=== PATIENT | female | born 1955 | race African-American/Black ===

== ENCOUNTER → 2020-10-09 08:50 | Outpatient (BNVA) | payer OTHER, SELFPAY | PROVIDERS: Visit Provider Internal Medicine Gastroenterology | DX: Z13.89 Encounter for screening for other disorder (principal) | CPT/HCPCS: 99212 ==

== ENCOUNTER → 2020-10-28 13:18 | Outpatient (BNVA) | payer OTHER, SELFPAY | PROVIDERS: PCP Student in an Organized Health Care Education/Training Program; Visit Provider Internal Medicine Gastroenterology | DX: Z23 Encounter for immunization (principal) | CPT/HCPCS: 90471; 90632 ==

== ENCOUNTER 2020-11-05 14:22 | Outpatient (REF) | payer OTHER, SELFPAY ==
[2020-11-05 14:58] LABS: MANUAL DIFF FLAG NO
[2020-11-05 15:01] LABS: Basophils Absolute Auto 0.1 X10*3/uL (0.0-0.2); Basophils Percent Auto 0.9 % (0-2); Eosinophils Absolute Auto 0.1 X10*3/uL (0.0-0.4); Eosinophils Percent Auto 1.8 % (0-4); Hematocrit 43.8 % (37-47); Hemoglobin 14.9 g/dl (12.0-16.0); Imm Gran Abs Auto 0.01 X10*3/uL (0.00-0.03); Imm Gran Pct Auto 0.2 % (0.0-0.4); Lymphocytes Absolute Auto 2.6 X10*3/uL (1.2-4.9); Lymphocytes Percent Auto 48.1 % (20-40); Mean Corpuscular Hemoglobin 30.5 pg (27.0-33.0); Mean Corpuscular Volume 89.8 fL (80-98); Monocytes Absolute Auto 0.4 X10*3/uL (0.1-1.2); Neutrophils Absolute Auto 2.3 X10*3/uL (2.0-8.3); Platelet Count 118 X10*3/uL (160-400); Red Blood Count 4.88 X10*6/uL (4.20-5.50); Red Cell Distribution Width 13.2 % (11.0-16.0); White Blood Count 5.5 X10*3/uL (4.8-10.8)
[2020-11-05 15:05] LABS: INTERNATIONAL NORM RATIO 1.2 (0.9-1.1); Prothrombin Time 13.7 SEC (10.8-13.0)
[2020-11-05 15:39] LABS: Alanine Aminotransferase 19 U/L (0-31); Albumin Level 4.2 g/dL (3.5-5.0); Alkaline Phosphatase 107 U/L (39-117); Anion Gap 13 (12-20); Aspartate Amino Transferase 19 U/L (5-31); Bilirubin Total 1.1 mg/dL (0.0-1.0); Blood Urea Nitrogen 8 mg/dL (9-16); Calcium 8.7 mg/dL (8.4-10.2); Carbon Dioxide 27 mmol/L (22-29); Chloride 99 mmol/L (96-108); Estimated Glomerular Filt Rate > 60; Glucose Random 312 mg/dL (60-115); Potassium 3.4 mmol/l (3.3-5.1); Sodium 136 mmol/L (135-145); Total Protein 8.1 g/dL (6.5-8.0)
[2020-11-06 11:48] LABS: Alpha Fetoprotein 6.2 ng/mL
== END 2020-11-05 14:23 | disposition home or self-care (01) ==
LOC: HO.LAB 14:22
PROVIDERS: PCP Student in an Organized Health Care Education/Training Program; Visit Provider Internal Medicine Gastroenterology
DX: K74.60 Unspecified cirrhosis of liver (principal)
CPT/HCPCS: 36415; 80053; 82105; 85025; 85610

== ENCOUNTER → 2021-08-10 10:16 | Outpatient (BNVA) | payer OTHER, SELFPAY | PROVIDERS: PCP Student in an Organized Health Care Education/Training Program; Visit Provider Internal Medicine Gastroenterology | DX: R79.89 Other specified abnormal findings of blood chemistry (principal); F10.11 Alcohol abuse, in remission; K76.6 Portal hypertension; K74.60 Unspecified cirrhosis of liver; D69.6 Thrombocytopenia, unspecified | CPT/HCPCS: 99212 ==

== ENCOUNTER 2021-09-21 07:56 | Outpatient (REF) | payer OTHER, SELFPAY ==
--- NOTE | ~2021-09-21 | US_ITS ---
EXAMINATION: US ABDOMEN COMPLETE CLINICAL INFORMATION: Unspecified cirrhosis of liver. COMPARISON: MRI abdomen 08/02/2019. Ultrasound abdomen 06/01/2019. TECHNIQUE: Real-time imaging of the abdominal viscera. FINDINGS: PANCREAS: Normal. ABDOMINAL AORTA: The proximal, mid, and distal segments are normal in caliber. INFERIOR VENA CAVA: Visualized portions are normal. LIVER: The liver appears cirrhotic. Liver echotexture is increased and heterogeneous. There is question of a a 2.1 x 2.2 x 1.8 cm hyperechoic lesion in the central right lobe of the liver. There are innumerable hypoechoic areas in the liver, better appreciated in the left lobe, that measure less than 1 cm. There is no biliary duct dilatation. GALLBLADDER: The gallbladder is normal in size. There is a gallstone in the gallbladder. The gallbladder wall is normal. COMMON BILE DUCT: Normal in caliber measuring 0.45 cm in diameter. RIGHT KIDNEY: Normal. No hydronephrosis. No renal calculi or focal parenchymal lesions. The kidney measures 11.5 cm in maximum dimension. LEFT KIDNEY: Normal. No hydronephrosis. No renal calculi or focal parenchymal lesions. The kidney measures 10.6 cm in maximum dimension. SPLEEN: Normal. The spleen measures 8.8 cm in maximum dimension. FREE FLUID: None. US/US abdomen complete IMPRESSION: Cirrhotic-appearing liver. Heterogeneous liver echotexture with innumerable small subcentimeter hypoechoic areas. New 2 cm hyperechoic area in the central right lobe of the liver questionable for focal lesion.. Further characterization with liver MRI recommended. Gallstone.
[2021-09-21 11:17] LABS: INTERNATIONAL NORM RATIO 1.1 (0.9-1.1)
[2021-09-21 11:38] LABS: MANUAL DIFF FLAG NO
[2021-09-21 11:54] LABS: Basophils Percent Auto 0.9 % (0-2); Eosinophils Absolute Auto 0.2 X10*3/uL (0.0-0.4); Eosinophils Percent Auto 4.6 % (0-4); Hematocrit 42.1 % (37.0-47.0); Imm Gran Abs Auto 0.01 X10*3/uL (0.00-0.03); Imm Gran Pct Auto 0.2 % (0.0-0.4); Lymphocytes Absolute Auto 2.1 X10*3/uL (1.2-4.9); Lymphocytes Percent Auto 45.2 % (20-40); Mean Corpuscular HGB Conc 33.3 g/dl (31.0-35.0); Mean Corpuscular Hemoglobin 29.5 pg (27.0-33.0); Mean Corpuscular Volume 88.6 fL (80.0-98.0); Mean Platelet Volume 12.6 fL (9.4-12.3); Monocytes Absolute Auto 0.4 X10*3/uL (0.1-1.2); Monocytes Percent Auto 8.5 % (2-11); Neutrophils Absolute Auto 1.9 x10*3/uL (2.0-8.3); Neutrophils Percent Auto 40.6 % (45-73); Platelet Count 107 X10*3/uL (160-400); Red Blood Count 4.75 X10*6/uL (4.20-5.50); Red Cell Distribution Width 13.6 % (11.0-16.0); White Blood Count 4.6 X10*3/uL (4.8-10.8)
[2021-09-21 12:09] LABS: Alanine Aminotransferase 17 U/L (0-31); Alkaline Phosphatase 99 U/L (39-117); Anion Gap 15 (12-20); Aspartate Amino Transferase 21 U/L (5-31); Bilirubin Total 1.1 mg/dL (0.0-1.0); Blood Urea Nitrogen 7 mg/dL (9-16); Calcium 8.9 mg/dL (8.4-10.2); Carbon Dioxide 23 mmol/L (22-29); Chloride 104 mmol/L (96-108); Estimated Glomerular Filt Rate > 60; Glucose Random 215 mg/dL (60-115); Potassium 3.5 mmol/L (3.3-5.1); Sodium 138 mmol/L (135-145); Total Protein 8.1 g/dL (6.5-8.0)
== END 2021-09-21 07:57 | disposition home or self-care (01) ==
LOC: HO.HMGCX 07:56
PROVIDERS: PCP Student in an Organized Health Care Education/Training Program; Visit Provider Internal Medicine Gastroenterology
DX: K74.60 Unspecified cirrhosis of liver (principal)
CPT/HCPCS: 36415; 76700; 80053; 85025; 85610

== ENCOUNTER 2021-09-25 09:29 | Outpatient (REF) | payer OTHER, SELFPAY ==
--- NOTE | ~2021-09-25 | MR_ITS ---
EXAMINATION: MR ABDOMEN WITHOUT AND WITH CONTRAST CLINICAL INFORMATION: Cirrhosis. Question liver lesion. COMPARISON: Previous abdominal MRI July 2019 and abdominal ultrasound May 2019 and August 2021 TECHNIQUE: MR abdomen was performed without and with use of 6 mL intravenous Gadavist gadolinium contrast. Postcontrast images are performed in multiphase dynamic sequences. Imaging was performed in 3 planes. FINDINGS: LUNG BASES: The visualized lung bases are unremarkable. LIVER, GALLBLADDER, AND BILIARY TREE: The liver appears cirrhotic. There is heterogeneous enhancement of the liver suggestive of severe fibrosis. There is a small cyst seen in the peripheral lateral segment of the left lobe of the liver, for example axial T2 image 9 series 5. This is probably stable. There are no areas of early arterial phase enhancement seen. There is no biliary duct dilatation. There are gallstones in the gallbladder. PANCREAS: Unremarkable. SPLEEN: Normal. ADRENAL GLANDS: Normal. KIDNEYS AND URETERS: The kidneys are normal in size, shape, and enhance symmetrically. No hydronephrosis. No perinephric stranding. GASTROINTESTINAL TRACT: No bowel obstruction. No ascites or fluid collection. ABDOMINAL WALL: No significant hernia is appreciated. LYMPH NODES: No lymphadenopathy. VASCULAR: Unremarkable. OSSEOUS STRUCTURES: Marrow signal normal. There are degenerative changes of the spine. MR/MR abdomen wo/w con IMPRESSION: Cirrhosis and severe fibrosis. Probable stable small cyst in the lateral segment of the left lobe of the liver. No suspicious liver lesion seen. Gallstones.
== END 2021-09-25 09:30 | disposition home or self-care (01) ==
LOC: HO.MRI 09:29
PROVIDERS: Visit Provider Internal Medicine Gastroenterology
DX: R93.5 Abnormal findings on diagnostic imaging of other abdominal regions, including retroperitoneum (principal); K74.60 Unspecified cirrhosis of liver
CPT/HCPCS: 74183; A9585

== ENCOUNTER → 2022-02-11 10:10 | Outpatient (BNVA) | payer OTHER, SELFPAY | PROVIDERS: PCP Student in an Organized Health Care Education/Training Program; Visit Provider Internal Medicine Gastroenterology | DX: K74.60 Unspecified cirrhosis of liver (principal); K76.6 Portal hypertension; R79.89 Other specified abnormal findings of blood chemistry; E55.9 Vitamin D deficiency, unspecified; F10.11 Alcohol abuse, in remission; D69.6 Thrombocytopenia, unspecified | CPT/HCPCS: 99212 ==

== ENCOUNTER 2022-03-16 09:39 | Outpatient (REF) | payer OTHER, SELFPAY ==
--- NOTE | ~2022-03-16 | MR_ITS ---
EXAMINATION: MR ABDOMEN WITHOUT AND WITH CONTRAST CLINICAL INFORMATION: Cirrhosis COMPARISON: MR abdomen 09/25/2020 TECHNIQUE: MR abdomen was performed without and with use of 6 mL intravenous Gadavist gadolinium contrast. Postcontrast images are performed in multiphase dynamic sequences. Imaging was performed in 3 planes. FINDINGS: LUNG BASES: The visualized lung bases are unremarkable. LIVER, GALLBLADDER, AND BILIARY TREE: Cirrhotic morphology of the liver. Exam is severely motion degraded which limits assessment for liver lesions. No discrete liver lesion is appreciated within the limitations of significant motion. Cholelithiasis without evidence of acute cholecystitis. PANCREAS: Unremarkable. SPLEEN: Normal in size. ADRENAL GLANDS: Unremarkable. KIDNEYS AND URETERS: Unremarkable. GASTROINTESTINAL TRACT: Unremarkable. ABDOMINAL WALL: Unremarkable. LYMPH NODES: No lymphadenopathy. VASCULAR: Unremarkable. OSSEOUS STRUCTURES: Unremarkable. MR/MR abdomen wo/w con IMPRESSION: Cirrhotic morphology of the liver. Exam is severely motion degraded which limits assessment for liver lesions. No discrete liver lesion is appreciated within the limitations of significant motion, however given the degree of degradation a repeat examination or alternate imaging modalities should be considered for evaluation. Cholelithiasis without evidence of acute cholecystitis.
[2022-03-16 10:07] LABS: MANUAL DIFF FLAG NO
[2022-03-16 10:45] LABS: Basophils Percent Auto 0.6 % (0-2); Eosinophils Absolute Auto 0.2 X10*3/uL (0.0-0.4); Eosinophils Percent Auto 3.4 % (0-4); Hematocrit 41.1 % (37.0-47.0); Hemoglobin 13.5 g/dl (12.0-16.0); Imm Gran Abs Auto 0.01 X10*3/uL (0.00-0.03); Imm Gran Pct Auto 0.2 % (0.0-0.4); Lymphocytes Absolute Auto 1.9 X10*3/uL (1.2-4.9); Lymphocytes Percent Auto 41.3 % (20-40); Mean Corpuscular HGB Conc 32.8 g/dl (31.0-35.0); Mean Corpuscular Hemoglobin 29.5 pg (27.0-33.0); Mean Corpuscular Volume 89.7 fL (80.0-98.0); Mean Platelet Volume 12.2 fL (9.4-12.3); Monocytes Absolute Auto 0.4 X10*3/uL (0.1-1.2); Monocytes Percent Auto 8.2 % (2-11); Neutrophils Absolute Auto 2.2 x10*3/uL (2.0-8.3); Neutrophils Percent Auto 46.3 % (45-73); Platelet Count 103 X10*3/uL (160-400); Red Blood Count 4.58 X10*6/uL (4.20-5.50); Red Cell Distribution Width 13.8 % (11.0-16.0); White Blood Count 4.7 X10*3/uL (4.8-10.8)
[2022-03-16 10:52] LABS: INTERNATIONAL NORM RATIO 1.2 (0.9-1.1); Prothrombin Time 13.6 SEC (9.9-13.0)
[2022-03-16 11:11] LABS: Alanine Aminotransferase 22 U/L (0-31); Albumin Level 3.8 g/dL (3.5-5.0); Alkaline Phosphatase 93 U/L (39-117); Anion Gap 14 (12-20); Aspartate Amino Transferase 26 U/L (5-31); Bilirubin Total 1.3 mg/dL (0.0-1.0); Blood Urea Nitrogen 8 mg/dL (9-16); Carbon Dioxide 24 mmol/L (22-29); Chloride 102 mmol/L (96-108); Estimated Glomerular Filt Rate > 60; Glucose Random 206 mg/dL (60-115); Potassium 3.5 mmol/L (3.3-5.1); Sodium 136 mmol/L (135-145); Total Protein 7.8 g/dL (6.5-8.0)
[2022-03-16 11:36] LABS: Vitamin D 25-OH Total 21.3 ng/mL (>30)
[2022-03-19 13:12] LABS: Zinc 59 mcg/dL (60-130)
== END 2022-03-16 09:40 | disposition home or self-care (01) ==
LOC: HO.MRI 09:39
PROVIDERS: PCP Student in an Organized Health Care Education/Training Program; Visit Provider Internal Medicine Gastroenterology
DX: K74.60 Unspecified cirrhosis of liver (principal)
CPT/HCPCS: 36415; 74183; 80053; 82306; 84630; 85025; 85610; A9585

== ENCOUNTER 2022-06-18 11:28 | Day surgery (SDC) | payer MEDICARE, OTHER, SELFPAY ==
[2022-06-18 11:36] VITALS: BMI 26.7
[2022-06-18 11:56] VITALS: BP 159/76; PULSE 72; RESP 16; TEMP 36.7; O2SAT 98
[2022-06-18] MEDS: Lactated Ringers 1,000 ML 100 ML IVCONT (12:04)
--- NOTE | 2022-06-18 12:26 | HO.ANESPROP2 ---
HPI - Anesthesia Eval Consult details Narrative: 67yo female patient for EGD PMFSH Active Problems Active Problems: All Active Problems (Updated 05/31/22 @ 11:42 by Sita Peterson RN) Cirrhosis of liver without ascites (Acute) Portal hypertension (Acute) Thrombocytopenia (Acute) ETOH abuse (Acute)- still drinking 'moderately' Vitamin D deficiency (Acute) Elevated LFTs (Acute) Type 2 diabetes mellitus (Acute) Abnormal US (ultrasound) of abdomen (Acute) HTN Denies MEGHA Past Medical History Medical History Cirrhosis of liver without ascites ETOH abuse History of gastric cancer Portal hypertension Thrombocytopenia Type 2 diabetes mellitus Vitamin D deficiency Family History Family History Father No problems noted. Mother No problems noted. Family history of problems with anesthesia: No Surgical History Surgical History (Updated 06/18/22 @ 11:35 by Ana Maria Fish RN) History of appendectomy History of History of colonoscopy History of hysterectomy Hx of abdominal surgery Hx of endoscopy Hx of tubal ligation History of Problems with Anesthesia: No Social History Social History Alcohol intake: current Alcohol intake frequency: former alcohol drinker Alcohol type: beer Patient Tobacco Use Status: Never used Tobacco Use of substances other than those prescribed or required for medical reasons: No Are you DNR?: No Advance Directives: No Advance Directives Information Provided: Yes Meds Allergies Allergy/AdvReac Type Severity Reaction Status Date / Time glipizide Allergy Unknown Stomach Verified 06/18/22 11:35 pain, nausea, palpitations Active Medications: Current Medications Lactated Ringer's (Lr) 1,000 mls @ 100 mls/hr IVCONT .Q10H FINN Last Admin: 06/18/22 12:04 Dose: 100 mls/hr Home Medications Medication Instructions Recorded Confirmed Last Taken Type amlodipine 10 mg tablet 10 mg PO DAILY 10/09/20 06/18/22 06/18/22 07:30 History glyburide 5 mg tablet 5 mg PO BID 10/09/20 06/18/22 06/18/22 07:30 History metoprolol succinate 200 mg 200 mg PO DAILY 10/09/20 06/18/22 06/18/22 07:30 History tablet,extended release 24 hr Exam Exam Date and Time: June 18, 2022 1226 Height,Weight and Vital Signs: Height 5 ft Weight 62.142 kg Last Vital Signs Temp 98.0 F 06/18/22 11:56 Pulse 72 06/18/22 11:56 Resp 16 06/18/22 11:56 BP 159/76 H 06/18/22 11:56 Pulse Ox 98 06/18/22 11:56 O2 Del Method 06/18/22 11:56 Pertinent Lab Results Pertinent Lab Results: Lab Results 06/18/22 Range/Units 11:54 POC Glucose 145 H (60-115) mg/dL Airway Mallampati Class: II TM Dist: >3cm Neck ROM: Full Loose/Missing/Broken Teeth: No (Top front tooth discolored ) Heart: RRR Lungs: CTAB Assessment and Plan Assessment Anesthesia Assessment: Anesthesia Plan Discussed and Chart Reviewed Final Anesthetic Review Family History of Problems with Anesthesia: No History of Problems with Anesthesia: No NPO: Yes ASA Class: III Final Preanesthetic Review: No Changes in Pt Med Stat, Meds/Allgs Chart Reviewed, Consent Obtained/Reviewed and Anes Risks/Benef Reviewed Patient Risk: Intermediate Procedure Risk: Low Assessment/Block/Sedation in SS: Assess/Block/Sedation-SS Anesthetic Plan Anesthetic Plan: MAC: Disposition: Standard PACU
[2022-06-18 12:41] LABS: Glucose, Whole Blood 145 mg/dL (60-115)
--- NOTE | 2022-06-18 12:49 | MHC.SHP ---
Pre-Procedural Eval Section A Date of Service: 06/18/22 The patient is an INPATIENT: No The History & Physical has been completed within 30 days and I have reviewed it.: No Section B Chief Complaint: cirrhosis screen for varices Details of Present Illness: cirrhosis screen for varices Relevant Family History (Specify if Yes): No Relevant Social History: None Present Medications: see Short Stay Collaborative assessment Medical History: Significant History ( cirrhosis, history of gastric cancer) History of Previous Operations: Relevant previous surgery/procedure and date(s) (History of appendectomy History of History of colonoscopy History of hysterectomy Hx of endoscopy) Allergies: Allergies Allergy/AdvReac Type Severity Reaction Status Date / Time glipizide Allergy Unknown Stomach Verified 06/18/22 11:35 pain, nausea, palpitations Review of Systems Sugical H&P ROS: Negative: Constitution, Cardiovascular, Respiratory and Gastrointestinal Exam Surgical H&P Exam: Normal: Heart, Normal: Lungs, Normal: Extremities and Normal: Abdomen Plan Diagnosis/Plan: Unchanged I have reviewed the history and physical and performed a pertinent physical examination on my patient. No changes have occurred unless specified.
--- NOTE | 2022-06-18 12:56 | P.BOP_ITS ---
Brief Operative Note Date of Service: 06/18/22 Pre-op diagnosis: cirrhosis follow-up of esophageal varices Post-op diagnosis: other ( Small esophageal varices, mild portal gastropathy, gastritis) Procedure: FLEXIBLE TRANSORAL UPPER GASTROINTESTINAL ENDOSCOPY WITH BIOPSIES Consent: Indications for the procedure and potential complications of bleeding, perforation, reaction to medications and missed diagnosis were discussed with the patient and informed consent was obtained. Instrument: Olympus GIF H 190 mid size upper endoscope Monitoring: Vital signs and clinical assessment, continuous EKG monitoring, Pulse oximetry, Carbon Dioxide monitoring and blood pressure monitoring were done throughout the procedure. Procedure: The patient was placed in the left lateral decubitis position and pre-procedure medications were administered and a bite block was placed. The endoscope was inserted into the mouth and advanced under direct vision to the third part of duodenum. A careful inspection was made as the upper endoscope was withdrawn including a retroflexed examination of the proximal stomach; Findings and interventions are described below. Findings: Larynx: Normal Esophagus: Grade 1-2 two columns of esophageal varices from 30 to 38 cms without high risk stigmata for bleeding and too small to be banded. GE junction at 38 cms. No esophagitis or Soria's. Stomach: Moderate diffuse gastric erythema with mild portal gastropathy. Antral biopsies were obtained. Grade 2 flap valve and no significant gastric varices on retroflexed examination of the cardia. Duodenum: Normal bulb and descending duodenum Intervention: Biopsies as noted above Impression and Post Procedure Diagnosis: Endoscopy Findings: ESOPHAGUS: Grade 1-2 two columns of esophageal varices from 30 to 38 cms without high risk stigmata for bleeding and too small to be banded. GE junction at 38 cms. No esophagitis or Soria's. STOMACH: Moderate diffuse gastric erythema with mild portal gastropathy. Antral biopsies were obtained. Grade 2 flap valve and no significant gastric varices on retroflexed examination of the cardia. Plan: Await pathology results Patient has an appointment on 08/05/22 in the GI Clinic with Cary Weaver M.D.. Above findings were reviewed with the patient and [GERD] and [Gastritis] handouts were given in the discharge area Surgeon: Cary Weaver MD Anesthesia: MAC Was an Application Design Engineer used for this Procedure?: Yes Application Design Engineer: Liset Ojeda Estimated blood loss (mL): 0 Pathology: other (A. gastric antrum bxs, R/O H. pylori) Condition: stable Disposition: PACU
--- NOTE | 2022-06-18 12:56 | W.PM.OPN ---
Operative Note Operative Note Date of Service: 06/18/22 Narrative: Pre-op diagnosis: cirrhosis follow-up of esophageal varices Post-op diagnosis:?other (? Small esophageal varices, mild portal gastropathy, gastritis) Procedure: FLEXIBLE TRANSORAL UPPER GASTROINTESTINAL ENDOSCOPY WITH BIOPSIES Consent:?Indications for the procedure and potential complications of bleeding, perforation, reaction to medications and missed diagnosis were discussed with the patient and informed consent was obtained. Instrument:?Olympus GIF H 190 mid size upper endoscope Monitoring: Vital signs and clinical assessment, continuous EKG monitoring, Pulse oximetry, Carbon Dioxide monitoring and blood pressure monitoring were done throughout the procedure. Procedure:?The patient was placed in the left lateral decubitis position and pre-procedure medications were administered and a bite block was placed. The endoscope was inserted into the mouth and advanced under direct vision to the third part of duodenum. A careful inspection was made as the upper endoscope was withdrawn including a retroflexed examination of the proximal stomach; Findings and interventions are described below. Findings: Larynx:? Normal Esophagus: Grade 1-2 two columns of esophageal varices from 30 to 38 cms? without high risk stigmata for bleeding and too small to be banded. GE junction at 38 cms. No esophagitis or Soria's. Stomach: Moderate diffuse gastric erythema with mild portal gastropathy. Antral biopsies were obtained. Grade 2 flap valve? and no significant gastric varices on retroflexed examination of the cardia. Duodenum: Normal bulb and descending duodenum Intervention: Biopsies as noted above Impression and Post Procedure Diagnosis: Endoscopy Findings: ESOPHAGUS: Grade 1-2 two columns of esophageal varices from 30 to 38 cms? without high risk stigmata for bleeding and too small to be banded. GE junction at 38 cms. No esophagitis or Soria's. STOMACH: Moderate diffuse gastric erythema with mild portal gastropathy. Antral biopsies were obtained. Grade 2 flap valve? and no significant gastric varices on retroflexed examination of the cardia. Plan: Await pathology results Repeat EGD in 1 year. Patient has an appointment on 08/05/22 in the GI Clinic with Cary Weaver M.D. Above findings were reviewed with the patient and esophageal varices handout was given in the discharge area Surgeon: Cary Weaver MD Anesthesia:?MAC Was an Metal Furniture Repairer used for this Procedure?:?Yes Metal Furniture Repairer:?Liset Ojeda Estimated blood loss (mL):?0 Pathology:?other (A. gastric antrum bxs, R/O H. pylori) Condition:?stable Disposition:?PACU
[2022-06-18 13:26] VITALS: BP 91/51; PULSE 64; RESP 16; TEMP 36.6; O2SAT 97
[2022-06-18 13:41] VITALS: BP 102/59; PULSE 69; RESP 16; O2SAT 98
[2022-06-18 13:56] VITALS: BP 132/74; PULSE 70; RESP 16; TEMP 36.4; O2SAT 97
== END 2022-06-18 14:27 | disposition home or self-care (01) ==
PROVIDERS: PCP Student in an Organized Health Care Education/Training Program; Visit Provider Internal Medicine Gastroenterology
PROC: 0DJ08ZZ Inspection of Upper Intestinal Tract, Via Natural or Artificial Opening Endoscopic (ICD-10-PCS; CPT 43235; principal; 2022-06-18 12:30)
DX: K21.9 Gastro-esophageal reflux disease without esophagitis (principal); K74.60 Unspecified cirrhosis of liver; I85.00 Esophageal varices without bleeding; F10.11 Alcohol abuse, in remission; K29.50 Unspecified chronic gastritis without bleeding; K76.6 Portal hypertension; E55.9 Vitamin D deficiency, unspecified; D69.6 Thrombocytopenia, unspecified; R79.89 Other specified abnormal findings of blood chemistry; E11.9 Type 2 diabetes mellitus without complications; Z79.84 Long term (current) use of oral hypoglycemic drugs; Z79.899 Other long term (current) drug therapy; Z88.8 Allergy status to other drugs, medicaments and biological substances; Z85.028 Personal history of other malignant neoplasm of stomach
CPT/HCPCS: 43239; 82947; 88305; 88342; J2250

== ENCOUNTER → 2022-11-25 09:23 | Outpatient (BNVA) | payer OTHER, SELFPAY | PROVIDERS: PCP Student in an Organized Health Care Education/Training Program; Visit Provider Internal Medicine Gastroenterology | DX: K76.6 Portal hypertension (principal) ==

== ENCOUNTER 2022-12-16 08:59 | Outpatient (REF) | payer OTHER, SELFPAY ==
--- NOTE | ~2022-12-16 | US_ITS ---
EXAMINATION: US ABDOMEN LIMITED CLINICAL INFORMATION: Unspecified cirrhosis of liver. Liver cyst. COMPARISON: MRI abdomen 03/16/2022 and 09/25/2021. Ultrasound abdomen complete 09/21/2021 and 06/01/2019. TECHNIQUE: Real-time imaging of the right upper quadrant abdominal viscera. FINDINGS: PANCREAS: Normal. LIVER: Liver is heterogeneous with a nodular border consistent with given history of cirrhosis. No biliary ductal dilatation is seen. There is a small hypoechoic area seen in the left lobe of the liver measuring 8 x 5 x 6 mm. This was not seen on the most recent MRI; however, this was extremely limited due to motion artifact. However, on an MR performed on 09/25/2021, a small cyst was noted in the lateral segment of the left lobe of the liver. At the time of the prior ultrasound from 09/21/2021, multiple masses were felt to be present in the liver which are not well appreciated on the current study. GALLBLADDER: Gallstones are present in the gallbladder wall appears thickened. Bacon's sign is negative. COMMON BILE DUCT: Normal in caliber measuring 0.3 cm in diameter. RIGHT KIDNEY: No hydronephrosis. No renal calculi or focal parenchymal lesions. The kidney measures 11.2 cm in maximum dimension. FREE FLUID: None. US/US abdomen limited IMPRESSION: 1. Cirrhotic-appearing liver with a small 8 mm hypoechoic area in the left lobe. This was not seen on the most recent MRI but was seen on the MRI prior to that. 2. Cholelithiasis.
[2022-12-16 11:27] LABS: INTERNATIONAL NORM RATIO 1.1 (0.9-1.1); Prothrombin Time 12.9 SEC (10.0-13.1)
[2022-12-16 11:30] LABS: Hematocrit 41.9 % (37.0-47.0); Mean Corpuscular HGB Conc 33.4 g/dl (31.0-35.0); Mean Corpuscular Hemoglobin 29.7 pg (27.0-33.0); Mean Corpuscular Volume 88.8 fL (80.0-98.0); Mean Platelet Volume 12.9 fL (9.4-12.3); Platelet Count 107 X10*3/uL (160-400); Red Blood Count 4.72 X10*6/uL (4.20-5.50); Red Cell Distribution Width 13.2 % (11.0-16.0); White Blood Count 5.3 X10*3/uL (4.8-10.8)
[2022-12-16 12:07] LABS: Alanine Aminotransferase 15 U/L (0-31); Albumin Level 3.9 g/dL (3.5-5.0); Alkaline Phosphatase 94 U/L (39-117); Anion Gap 15 (12-20); Aspartate Amino Transferase 23 U/L (5-31); Bilirubin Total 1.5 mg/dL (0.0-1.0); Blood Urea Nitrogen 9 mg/dL (9-16); Calcium 8.9 mg/dL (8.4-10.2); Carbon Dioxide 24 mmol/L (22-29); Chloride 103 mmol/L (96-108); Estimated Glomerular Filt Rate > 60; Glucose Random 251 mg/dL (60-115); Potassium 3.6 mmol/L (3.3-5.1); Sodium 138 mmol/L (135-145); Total Protein 7.8 g/dL (6.5-8.0); Vitamin D 25-OH Total 37.8 ng/mL (>30)
== END 2022-12-16 09:00 | disposition home or self-care (01) ==
LOC: HO.HMGCX 08:59
PROVIDERS: PCP Student in an Organized Health Care Education/Training Program; Visit Provider Internal Medicine Gastroenterology
DX: K74.60 Unspecified cirrhosis of liver (principal); K76.89 Other specified diseases of liver
CPT/HCPCS: 36415; 76705; 80053; 82306; 85027; 85610

== ENCOUNTER 2023-05-26 08:59 | Outpatient (AMB) | payer OTHER, SELFPAY ==
[2023-05-26 09:26] VITALS: BP 142/72; PULSE 54; BMI 27.5
--- NOTE | 2023-05-26 09:26 | A.OFFVIS_ITS ---
Intake Vital Signs 05/26/23 09:26 Height 5 ft Weight 141 lb BMI 27.5 BP 142/72 H Blood Pressure Location Lt brachial Position Sitting Pulse 54 Intake Visit Reasons: 6 month FU Allergies glipizide Allergy (Unknown, Verified 11/25/22 09:34) Stomach pain, nausea, palpitations Medication List - Last Reconciled 05/26/23 by Cary Weaver MD amlodipine 10 mg PO DAILY cholecalciferol (vitamin D3) 250 mcg PO 2XW 90 days glyburide 5 mg PO BID metoprolol succinate ER 200 mg PO DAILY HPI 6 month FU HPI Details GI CLINIC VISIT FOR THIS 68-YEAR-OLD FEMALE FOR FOLLOW-UP OF CIRRHOSIS. CHRONIC ILLNESSES:?Heavy alcohol use, vitamin-D deficiency, abnormal LFTs, thrombocytopenia, history of malignant neoplasm of the stomach, pseudophakia of both eyes, type 2 diabetes mellitus without ophthalmic manifestations ?LABS IN [facility]:?08/11 NORMAL HAPTOGLOBIN and LFts. ? Hepatitis-B and C serologies were negative. ? 08/11 Liver fibrosis score 0.38, Liver Fibrosis Stage F1-F2, necroinflammatory score 0.09, albumin 3.9 ? 04/2015 WBC 4.3 H&H 13.1 AND 40.6, PLATELET COUNT 117, ? IMAGING STUDIES:?12/16/ ABD US SHOWED: 1.? Cirrhotic-appearing liver with a small 8 mm hypoechoic area in the left lobe. This was not seen on the most recent MRI but was seen on the MRI prior to that. 2.? Cholelithiasis. 02/2022 HEPATIC MRI SHOWED: Cirrhotic morphology of the liver. Exam is severely motion degraded which limits assessment for liver lesions. No discrete liver lesion is appreciated within the limitations of significant motion, however given the degree of degradation a repeat examination or alternate imaging modalities should be considered for evaluation. ?Cholelithiasis without evidence of acute cholecystitis. 09/2021 ABD MRI SHOWED: ? LIVER, GALLBLADDER, AND BILIARY TREE: The liver appears cirrhotic. There is heterogeneous enhancement of the liver suggestive of severe fibrosis. There is a small cyst seen in the peripheral lateral segment of the left lobe of the liver, for example axial T2 image 9 series 5. This is probably stable. There are no areas of early arterial phase enhancement seen. There is no biliary duct dilatation. There are gallstones in the gallbladder. 07/2019 abdominal MRI showed: ? Findings consistent with hepatic cirrhosis. No abnormal arterial phase enhancement to suggest hepatocellular carcinoma. ? ? ? Gallstones. Likely gastric, esophageal, and splenic varices suggesting portal hypertension. ? ENDOSCOPIC STUDIES:?05/2022 EGD SHOWED: ESOPHAGUS: Grade 1-2 two columns of esophageal varices from 30 to 38 cms? without high risk stigmata for bleeding and too small to be banded. GE junction at 38 cms. No esophagitis or Soria's. STOMACH: Moderate diffuse gastric erythema with mild portal gastropathy. Antral biopsies were obtained - negative for Helicobacter pylori. Being followed at [facility] by Dr Michel and had an EGD and Colonoscopy on 01/03/20. RECORDS FROM [facility] WERE REVIEWED: EGD showed 2 cords of flat non bleeding varices in the lower 3rd of the esophagus with no stigmata of bleeding and were too small to be banded. A few superficial nonbleeding 1-2 mm ulcers were found in the antrum and biopsies were obtained. Mucosa appeared diffuse and congested with petechiae and mosaic mucosal pattern compatible with portal hypertensive gastropathy. Gastric biopsies were positive for Helicobacter pylori associated chronic active gastritis. ?TODAY'S VISIT Had an asthma attack around her birthday (? related to smoke in the air) She was treated with 2 courses of prednisone. Finished prednisone a week ago. 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 Starting a program next week (06/03/23) for the drinking Taking 2-3 beers daily or every other day. Daughter visiting from [place] this week. PAST VISIT: Doing fine and doing good. ?Feeling better than she did last year. Drinking a lot less - 2-3 drinks of beer a day Visited her daughter in [place] last summer and saw her GK and great GK Not drinking as much as she was in the past. Takes 1-2 drinks after work every other day Thinking about visiting her daughter in [place] over the summer Drinks off and on - 3 beers (no hard liqour) 3-4 times a week ? Trying to take better care of herself and trying to quit drinking. ? Stomach has not been bothering her like before. ? Feet swell up once a week during the summer if she does a lot of walking. ? Has not been to [facility] in 12 months COVID test was negative last week. ? ? ? Had a CT scan recently. ? Treated with antibiotics for H Pylori. ? Scheduled to have labs this month and FU at [facility] on 04/21/20. ? Had an Abd US at [facility] in December - negative per patient. ? Working on quitting drinking and still working on it - takes 1 beer and no hard liquor daily. ? Denies symptoms of fatigue, fever or dizziness. ? Patient denies change in bowel habits, black stools or rectal bleeding ? Denies dysphagia, heartburn. ? Eating a little more and appetite and weight are stable. ? Diagnosed with DM 3 yrs ago. ? Pt was drinking 2 beers a day since October, after her spouse in Oct, 2018 with pancreatic cancer and states she quitted drinking 4-5 weeks ago. ? History of blood transfusion in 1972. ? Gastric surgery for CA in 2003 at [facility] - records have been requested. ? Mom has stage 4?breast cancer [facility] Medical History (Updated 11/25/22 @ 09:39 by Cary Weaver MD) Cirrhosis of liver without ascites ETOH abuse History of gastric cancer Portal hypertension Thrombocytopenia Type 2 diabetes mellitus Vitamin D deficiency Surgical History History of appendectomy History of History of colonoscopy History of esophagogastroduodenoscopy (EGD) History of hysterectomy Hx of abdominal surgery Hx of endoscopy Hx of tubal ligation Family History Father No problems noted. Mother No problems noted. Social History Alcohol intake: current Alcohol intake frequency: former alcohol drinker Alcohol type: beer Patient Tobacco Use Status: Never used Tobacco Review of Systems Const All systems reviewed & are unremarkable except as noted in HPI and below Physical Exam Vital Signs: Last Vital Signs Pulse 54 05/26/23 09:26 BP 142/72 H 05/26/23 09:26 BMI result Body Mass Index 27.5 Const General: healthy appearing and no acute distress Nutritional Appearance: overweight Orientation/consciousness: patient oriented x3 Limitations: no limitations HEENT Head: Yes normal to inspection Ears: hearing grossly normal bilaterally Eyes Sclerae: sclerae normal Pupils: Equal, round and reactive pupils present Neck Neck: Yes normal visual inspection Chest Chest palpation & inspection: normal inspection of the chest Resp Effort & Inspection: normal respiratory effort Auscultation: clear to auscultation bilaterally Cardio Palpation: normal PMI Rate: regular rate Rhythm: regular rhythm Heart sounds: S1 normal heart sound present, S2 normal heart sound present and n o murmurs GI Palpation (GI): Soft to palpation, nontender and No hepatosplenomegaly present Auscultation: normal bowel sounds Rectal Exam - Female: deferred Skin General skin exam: no rashes or lesions noted Neuro General: patient oriented x3, gait normal and moves all extremities Cranial nerves: Yes Equal, round and reactive pupils present Psych Appearance: grossly normal Mental Status: mental status grossly normal Assessment & Plan Assessment & Plan (1) Cirrhosis of liver without ascites: Code(s): K74.60 - Unspecified cirrhosis of liver (2) Portal hypertension: Code(s): K76.6 - Portal hypertension (3) Thrombocytopenia: Code(s): D69.6 - Thrombocytopenia, unspecified (4) History of ETOH abuse: Code(s): F10.11 - Alcohol abuse, in remission (5) Abnormal US (ultrasound) of abdomen: Code(s): R93.5 - Abnormal findings on diagnostic imaging of other abdominal regions, including retroperitoneum (6) Liver cyst: Code(s): K76.89 - Other specified diseases of liver Plan 68 YF with heavy alcohol use in the past, vitamin-D deficiency, abnormal LFTs, thrombocytopenia, history of malignant neoplasm of the stomach, pseudophakia of both eyes, type 2 diabetes mellitus seen for evaluation of elevated LFTs, thrombocytopenia and ultrasound showing cirrhotic appearing liver with heterogeneous echotexture. Cirrhosis can be related to EtOH use. Hepatitis-B and C serologies were negative. Lab evaluation for hemochromatosis and alpha-1 antitrypsin deficiency were normal. Course, complications and prognosis of cirrhosis was reviewed with the patient during a previous visit and she was advised to abstain completely from alcohol use . Pt continues to drink and states she is trying to quit. Patient handout on cirrhosis from up-to-date was provided to the patient and all questions were answered. Patient had an upper endoscopy and colonoscopy at [facility] with Dr. Michel in the 2nd week of December, -findings as noted above. Her hepatitis serologies were negative and 2nd dose of Hepatitis B vaccine was administered by GI RN (2nd Dose). Patient is due for her 3rd dose and I will ask GI RN to schedule. ? REDUCING THE RISK OF LIVER PROGRESSION:? patient was advised to completely avoid use of alcohol. HCC SURVEILLANCE: ? the patient is at risk of developing hepatocellular carcinoma given the presence of cirrhosis she needs 6 monthly imaging survei llance with either abdominal ultrasound (US) or multiphase cross-sectional imaging (CT or MRI).? She will be scheduled for an abd US (motion artifact on last MRI scan) SURVEILLANCE FOR GASTROESOPHAGEAL VARICES: Pt will be scheduled for repeat EGD for follow up of esophageal varices on her FU visit (due end of 2022) QUESTION OF LIVER TRANSPLANTATION: ? As she has never had any hepatic decompensation, and continues to have good hepatic synthetic function with meld score of 9, liver transplantation does not need to be considered at this time. Patient was advised to schedule an EGD (FU of esophageal varices and an Abd US and FU in 6 months Orders: Orders US abdomen limited Today K74.60 - Unspecified cirrhosis of liver, K76.89 - Other specified diseases of liver Coding Level of Care Code Est Pt Level 4 (74443) Diagnoses Cirrhosis of liver without ascites K74.60 Portal hypertension K76.6 Thrombocytopenia D69.6 History of ETOH abuse F10.11 Abnormal US (ultrasound) of abdomen R93.5 Liver cyst K76.89 Time Spent (min) 18
== END 2023-05-26 10:19 | disposition home or self-care (01) ==
PROVIDERS: Visit Provider Internal Medicine Gastroenterology
DX: K74.60 Unspecified cirrhosis of liver (principal); K76.6 Portal hypertension; D69.6 Thrombocytopenia, unspecified; F10.11 Alcohol abuse, in remission; R93.5 Abnormal findings on diagnostic imaging of other abdominal regions, including retroperitoneum; K76.89 Other specified diseases of liver
CPT/HCPCS: 99214

== ENCOUNTER → 2023-05-26 08:59 | Outpatient (BNVA) | payer OTHER, SELFPAY | PROVIDERS: Visit Provider Internal Medicine Gastroenterology ==

== ENCOUNTER 2023-06-30 08:47 | Outpatient (REF) | payer OTHER, SELFPAY ==
--- NOTE | ~2023-06-30 | US_ITS ---
EXAMINATION: US ABDOMEN LIMITED CLINICAL INFORMATION: Unspecified cirrhosis of liver. Screen for HCC and ascites. COMPARISON: Ultrasound abdomen limited 12/16/2022. MR abdomen without and with contrast 03/16/2022. Ultrasound abdomen complete 09/21/2021. TECHNIQUE: Real-time imaging of the right upper quadrant abdominal viscera. FINDINGS: PANCREAS: Normal. LIVER: The liver is normal in size. Within the left hepatic lobe, a 0.8 x 0.4 x 0.6 cm and 0.7 x 0.4 x 1.0 cm complex cysts are seen. These have the appearance is a simple cyst on the accompanying MRI examination (5:1 and 8; 6:8 and 17). Parenchymal echogenicity is coarsened. There is surface nodularity. There is no intrahepatic biliary duct dilatation seen. GALLBLADDER: There are shadowing calculi. There is gallbladder wall thickening to 8 mm. No definite pericholecystic fluid is seen. There is no sonographic Bacon's sign. COMMON BILE DUCT: Normal in caliber measuring 0.2 cm in diameter. RIGHT KIDNEY: Normal. No hydronephrosis. No renal calculi or focal parenchymal lesions. The kidney measures 10.8 cm in maximum dimension. FREE FLUID: None. US/US abdomen limited IMPRESSION: 1. There is generalized increase in hepatic echotexture, consistent with fatty infiltration or hepatocellular disease. Please correlate clinically. No focal hepatic mass or intrahepatic biliary dilatation is seen. 2. There are left hepatic lobe cysts again seen, correlating with recent MRI findings. 3. There is cholelithiasis and cholecystitis, likely chronic given the absence of pericholecystic fluid or sonographic Bacon's sign.
== END 2023-06-30 08:48 | disposition home or self-care (01) ==
LOC: HO.HMGCX 08:47
PROVIDERS: PCP Student in an Organized Health Care Education/Training Program; Visit Provider Internal Medicine Gastroenterology
DX: K74.60 Unspecified cirrhosis of liver (principal); K76.89 Other specified diseases of liver
CPT/HCPCS: 76705

== ENCOUNTER 2024-02-09 09:24 | Outpatient (AMB) | payer OTHER, SELFPAY ==
--- NOTE | 2024-02-09 09:32 | MHC.OFFVIS ---
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 CHRONIC ILLNESSES:?Heavy alcohol use, vitamin-D deficiency, abnormal LFTs, thrombocytopenia, history of malignant neoplasm of the stomach, pseudophakia of both eyes, type 2 diabetes mellitus without ophthalmic manifestations ?LABS IN [facility]:?08/11 NORMAL HAPTOGLOBIN and LFts. ? Hepatitis-B and C serologies were negative. ? 08/11 Liver fibrosis score 0.38, Liver Fibrosis Stage F1-F2, necroinflammatory score 0.09, albumin 3.9 ? 04/2015 WBC 4.3 H&H 13.1 AND 40.6, PLATELET COUNT 117, ? IMAGING STUDIES:?12/16/ ABD US SHOWED: 1.? Cirrhotic-appearing liver with a small 8 mm hypoechoic area in the left lobe. This was not seen on the most recent MRI but was seen on the MRI prior to that. 2.? Cholelithiasis. 02/2022 HEPATIC MRI SHOWED: Cirrhotic morphology of the liver. Exam is severely motion degraded which limits assessment for liver lesions. No discrete liver lesion is appreciated within the limitations of significant motion, however given the degree of degradation a repeat examination or alternate imaging modalities should be considered for evaluation. ?Cholelithiasis without evidence of acute cholecystitis. 09/2021 ABD MRI SHOWED: ? LIVER, GALLBLADDER, AND BILIARY TREE: The liver appears cirrhotic. There is heterogeneous enhancement of the liver suggestive of severe fibrosis. There is a small cyst seen in the peripheral lateral segment of the left lobe of the liver, for example axial T2 image 9 series 5. This is probably stable. There are no areas of early arterial phase enhancement seen. There is no biliary duct dilatation. There are gallstones in the gallbladder. 07/2019 abdominal MRI showed: ? Findings consistent with hepatic cirrhosis. No abnormal arterial phase enhancement to suggest hepatocellular carcinoma. ? ? ? Gallstones. Likely gastric, esophageal, and splenic varices suggesting portal hypertension. ? ENDOSCOPIC STUDIES:?05/2022 EGD SHOWED: ESOPHAGUS: Grade 1-2 two columns of esophageal varices from 30 to 38 cms? without high risk stigmata for bleeding and too small to be banded. GE junction at 38 cms. No esophagitis or Soria's. STOMACH: Moderate diffuse gastric erythema with mild portal gastropathy. Antral biopsies were obtained - negative for Helicobacter pylori. Being followed at [facility] by Dr Michel and had an EGD and Colonoscopy on 01/03/20. RECORDS FROM [facility] WERE REVIEWED: EGD showed 2 cords of flat non bleeding varices in the lower 3rd of the esophagus with no stigmata of bleeding and were too small to be banded. A few superficial nonbleeding 1-2 mm ulcers were found in the antrum and biopsies were obtained. Mucosa appeared diffuse and congested with petechiae and mosaic mucosal pattern compatible with portal hypertensive gastropathy. Gastric biopsies were positive for Helicobacter pylori associated chronic active gastritis. Colonoscopy was negative and was advised FU colon in ? 5yrs. (Due 12/2024) ?TODAY'S VISIT Patient follow up for GERD and US results Patient denies any GI issues or symptoms Had an asthma attack around her birthday (? related to smoke in the air) She was treated with 2 courses of prednisone. Finished prednisone a week ago. 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 Starting a program next week (06/03/23) for the drinking Taking 2-3 beers daily or every other day. Daughter visiting from [place] this week. PAST VISIT: Doing fine and doing good. ?Feeling better than she did last year. Drinking a lot less - 2-3 drinks of beer a day Visited her daughter in [place] last summer and saw her GK and great GK Not drinking as much as she was in the past. Takes 1-2 drinks after work every other day Thinking about visiting her daughter in [place] over the summer Drinks off and on - 3 beers (no hard liqour) 3-4 times a week ? Trying to take better care of herself and trying to quit drinking. ? Stomach has not been bothering her like before. ? Feet swell up once a week during the summer if she does a lot of walking. ? Has not been to [facility] in 12 months COVID test was negative last week. ? ? ? Had a CT scan recently. ? Treated with antibiotics for H Pylori. ? Scheduled to have labs this month and FU at [facility] on 04/21/20. ? Had an Abd US at [facility] in December - negative per patient. ? Working on quitting drinking and still working on it - takes 1 beer and no hard liquor daily. ? Denies symptoms of fatigue, fever or dizziness. ? Patient denies change in bowel habits, black stools or rectal bleeding ? Denies dysphagia, heartburn. ? Eating a little more and appetite and weight are stable. ? Diagnosed with DM 3 yrs ago. ? Pt was drinking 2 beers a day since October, after her spouse in Oct, 2018 with pancreatic cancer and states she quitted drinking 4-5 weeks ago. ? History of blood transfusion in 1972. ? Gastric surgery for CA in 2003 at [facility] - records have been requested. ? Mom has stage 4?breast cancer [facility] Medical History (Updated 11/25/22 @ 09:39 by Cary Weaver MD) Vitamin D deficiency Portal hypertension Cirrhosis of liver without ascites ETOH abuse Thrombocytopenia Type 2 diabetes mellitus History of gastric cancer Surgical History History of esophagogastroduodenoscopy (EGD) Hx of tubal ligation Hx of abdominal surgery History of appendectomy Hx of endoscopy History of colonoscopy History of hysterectomy History of Family History Father No problems noted. Mother No problems noted. Social History Alcohol intake: current Alcohol intake frequency: former alcohol drinker Alcohol type: beer Patient Tobacco Use Status: Never used Tobacco Review of Systems Const All systems reviewed & are unremarkable except as noted in HPI and below Physical Exam Vital Signs: Last Vital Signs Pulse 70 02/09/24 09:34 BP 176/79 H 02/09/24 09:34 BMI result Body Mass Index 27.1 Const General: healthy appearing and no acute distress Nutritional Appearance: overweight Orientation/consciousness: patient oriented x3 Limitations: no limitations HEENT Head: Yes normal to inspection Ears: hearing grossly normal bilaterally Eyes Sclerae: sclerae normal Pupils: Equal, round and reactive pupils present Neck Neck: Yes normal visual inspection Chest Chest palpation & inspection: normal inspection of the chest Resp Effort & Inspection: normal respiratory effort Auscultation: clear to auscultation bilaterally Cardio Palpation: normal PMI Rate: regular rate Rhythm: regular rhythm Heart sounds: S1 normal heart sound present, S2 normal heart sound present and no murmurs GI Palpation (GI): Soft to palpation, nontender and No hepatosplenomegaly present Auscultation: normal bowel sounds Rectal Exam - Female: deferred Skin General skin exam: no rashes or lesions noted Neuro General: patient oriented x3, gait normal and moves all extremities Cranial nerves: Yes Equal, round and reactive pupils present Psych Appearance: grossly normal Mental Status: mental status grossly normal Assessment & Plan Assessment & Plan (1) Cirrhosis of liver without ascites: Code(s): K74.60 - Unspecified cirrhosis of liver (2) Portal hypertension: Code(s): K76.6 - Portal hypertension (3) Thrombocytopenia: Code(s): D69.6 - Thrombocytopenia, unspecified Plan 68 YF with heavy alcohol use in the past, vitamin-D deficiency, abnormal LFTs, thrombocytopenia, history of malignant neoplasm of the stomach, pseudophakia of both eyes, type 2 diabetes mellitus seen for evaluation of elevated LFTs, thrombocytopenia and ultrasound showing cirrhotic appearing liver with heterogeneous echotexture. Cirrhosis can be related to EtOH use. Hepatitis-B and C serologies were negative. Lab evaluation for hemochromatosis and alpha-1 antitrypsin deficiency were normal. Course, complications and prognosis of cirrhosis was reviewed with the patient during a previous visit and she was advised to abstain completely from alcohol use . Pt continues to drink and states she is trying to quit. Patient handout on cirrhosis from up-to-date was provided to the patient and all questions were answered. Patient had an upper endoscopy and colonoscopy at [facility] with Dr. Michel in the 2nd week of December, -findings as noted above. Her hepatitis serologies were negative and 2nd dose of Hepatitis B vaccine was administered by GI RN (2nd Dose). Patient is due for her 3rd dose and I will ask GI RN to schedule. ? REDUCING THE RISK OF LIVER PROGRESSION:? patient was advised to completely avoid use of alcohol. HCC SURVEILLANCE: ? the patient is at risk of developing hepatocellular carcinoma given the presence of cirrhosis she needs 6 monthly imaging surveillance with either abdominal ultrasound (US) or multiphase cross-sectional imaging (CT or MRI).? She will be scheduled for an abd US (motion artifact on last MRI scan) SURVEILLANCE FOR GASTROESOPHAGEAL VARICES: Pt will be scheduled for repeat EGD for follow up of esophageal varices on her FU visit (due end of 2022) QUESTION OF LIVER TRANSPLANTATION: ? As she has never had any hepatic decompensation, and continues to have good hepatic synthetic function with meld score of 9, liver transplantation does not need to be considered at this time. Patient was advised to have labs checked and FU in 6 months She will be scheduled for an EGD (FU of esophageal varices) and a screening colon in spring Orders: Orders Comprehensive Met. Panel Today K74.60 - Unspecified cirrhosis of liver Prothrombin Time INR Today K74.60 - Unspecified cirrhosis of liver Complete Blood Count no Diff Today K74.60 - Unspecified cirrhosis of liver Hepatitis B Surface Antibody Today K74.60 - Unspecified cirrhosis of liver Hepatitis A IgG Today K74.60 - Unspecified cirrhosis of liver Coding Level of Care Code Est Pt Level 4 (09960) Diagnoses Cirrhosis of liver without ascites K74.60 Portal hypertension K76.6 Thrombocytopenia D69.6 Time Spent (min) 20
[2024-02-09 09:34] VITALS: BP 176/79; PULSE 70; BMI 27.1
== END 2024-02-09 10:14 | disposition home or self-care (01) ==
PROVIDERS: PCP Student in an Organized Health Care Education/Training Program; Visit Provider Internal Medicine Gastroenterology
DX: K74.60 Unspecified cirrhosis of liver (principal); K76.6 Portal hypertension; D69.6 Thrombocytopenia, unspecified
CPT/HCPCS: 99214

== ENCOUNTER → 2024-02-09 09:24 | Outpatient (BNVA) | payer OTHER, SELFPAY | PROVIDERS: PCP Student in an Organized Health Care Education/Training Program; Visit Provider Internal Medicine Gastroenterology ==

== ENCOUNTER 2024-02-28 09:03 | Outpatient (REF) | payer OTHER, SELFPAY ==
[2024-02-28 14:24] LABS: Hematocrit 41.7 % (37.0-47.0); Hemoglobin 13.9 g/dl (12.0-16.0); Mean Corpuscular HGB Conc 33.3 g/dl (31.0-35.0); Mean Corpuscular Volume 90.1 fL (80.0-98.0); Mean Platelet Volume 12.3 fL (9.4-12.3); Platelet Count 105 X10*3/uL (160-400); Red Blood Count 4.63 X10*6/uL (4.20-5.50); Red Cell Distribution Width 14.4 % (11.0-16.0); White Blood Count 4.3 X10*3/uL (4.8-10.8)
[2024-02-28 14:36] LABS: Estimated Average Glucose 226 mg/dL; Hemoglobin A1c % 9.5 % (<6.0)
[2024-02-28 14:38] LABS: Prothrombin Time 12.1 SEC (11.1-13.3)
[2024-02-28 15:08] LABS: Alanine Aminotransferase 23 U/L (0-31); Alkaline Phosphatase 81 U/L (39-117); Anion Gap 15 (12-20); Aspartate Amino Transferase 31 U/L (5-31); Bilirubin Direct 0.4 mg/dL (0.0-0.5); Blood Urea Nitrogen 6 mg/dL (9-16); Calcium 9.2 mg/dL (8.4-10.2); Carbon Dioxide 24 mmol/L (22-29); Chloride 104 mmol/L (96-108); Cholesterol 221 mg/dL (<200); Estimated Glomerular Filt Rate > 60; Glucose Random 158 mg/dL (60-115); HDL Cholesterol 67 mg/dL (>40); LDL Cholesterol Calculated 129 mg/dL (<100); Potassium 3.4 mmol/L (3.3-5.1); Sodium 140 mmol/L (135-145); Total Protein 8.4 g/dL (6.5-8.0); Triglycerides 125 mg/dL (<150)
[2024-02-29 04:12] LABS: Hepatitis A Antibody IgG REACTIVE (Nonreactive); ~Hepatitis A Antibody IgG 11.93 S/CO (0.00-0.99)
[2024-02-29 04:21] LABS: HBS Num1 34.28 mIU/mL (0-7.99); ~Hepatitis B Surface Antibody REACTIVE (Nonreactive)
== END 2024-02-28 09:04 | disposition home or self-care (01) ==
LOC: HO.CHCLDS 09:03
PROVIDERS: PCP Student in an Organized Health Care Education/Training Program; Visit Provider Internal Medicine Gastroenterology
DX: E11.9 Type 2 diabetes mellitus without complications (principal); K74.60 Unspecified cirrhosis of liver
CPT/HCPCS: 36415; 80053; 80061; 82248; 83036; 85027; 85610; 86706; 86708

== ENCOUNTER 2024-05-18 08:28 | Outpatient (REF) | payer OTHER, SELFPAY ==
[2024-05-18 14:33] LABS: Alanine Aminotransferase 20 U/L (0-31); Albumin Level 3.6 g/dL (3.5-5.0); Alkaline Phosphatase 82 U/L (39-117); Anion Gap 15 (12-20); Aspartate Amino Transferase 30 U/L (5-31); Bilirubin Direct 0.3 mg/dL (0.0-0.5); Blood Urea Nitrogen 7 mg/dL (9-16); Calcium 8.9 mg/dL (8.4-10.2); Carbon Dioxide 24 mmol/L (22-29); Chloride 106 mmol/L (96-108); Cholesterol 170 mg/dL (<200); Estimated Glomerular Filt Rate > 60; Glucose Random 254 mg/dL (60-115); HDL Cholesterol 49 mg/dL (>40); LDL Cholesterol Calculated 101 mg/dL (<100); Potassium 3.6 mmol/L (3.3-5.1); Sodium 141 mmol/L (135-145); Total Protein 7.3 g/dL (6.5-8.0); Triglycerides 102 mg/dL (<150)
[2024-05-18 14:44] LABS: Estimated Average Glucose 214 mg/dL; Hemoglobin A1c % 9.1 % (<6.0)
== END 2024-05-18 08:29 | disposition home or self-care (01) ==
LOC: HO.CHCLDS 08:28
PROVIDERS: Visit Provider Student in an Organized Health Care Education/Training Program
DX: E11.9 Type 2 diabetes mellitus without complications (principal)
CPT/HCPCS: 36415; 80048; 80061; 80076; 83036

== ENCOUNTER → 2024-08-09 08:37 | Outpatient (BNVA) | payer OTHER, SELFPAY | PROVIDERS: PCP Student in an Organized Health Care Education/Training Program; Visit Provider Internal Medicine Gastroenterology ==

== ENCOUNTER 2024-08-28 08:27 | Outpatient (REF) | payer OTHER, SELFPAY | END 2024-08-28 08:28 | disposition home or self-care (01) | LOC: HO.US 08:27 | PROVIDERS: PCP Student in an Organized Health Care Education/Training Program; Visit Provider Internal Medicine Gastroenterology | DX: K74.60 Unspecified cirrhosis of liver (principal) | CPT/HCPCS: 76705; 76981 ==

== ENCOUNTER 2024-09-05 17:57 | Outpatient (REF) | payer OTHER, SELFPAY ==
[2024-09-06 11:24] LABS: Adenovirus PCR Not Detected (Not Detect.); Bordetella parapertussis PCR Not Detected (Not Detect.); Bordetella pertussis PCR Not Detected (Not Detect.); Chlamydia pneumoniae PCR Not Detected (Not Detect.); Coronavirus 229E PCR Not Detected (Not Detect.); Coronavirus HKU1 PCR Not Detected (Not Detect.); Coronavirus NL63 PCR Not Detected (Not Detect.); Coronavirus OC43 PCR Not Detected (Not Detect.); Human metapneumovirus PCR Not Detected (Not Detect.); Influenza A PCR Not Detected (Not Detect.); Influenza B PCR Not Detected (Not Detect.); Mycoplasma pneumoniae PCR Not Detected (Not Detect.); Parainfluenza 1 PCR Not Detected (Not Detect.); Parainfluenza 2 PCR Not Detected (Not Detect.); Parainfluenza 3 PCR Not Detected (Not Detect.); Parainfluenza 4 PCR Not Detected (Not Detect.); RSV PCR Not Detected (Not Detect.); Rhino/Enterovirus PCR Detected (Not Detect.)
[2024-09-06 11:34] LABS: SARS-CoV-2 PCR Not Detected (Not Detect.)
== END 2024-09-05 17:58 | disposition home or self-care (01) ==
LOC: HO.HHCLNP 17:57
PROVIDERS: Visit Provider Emergency Medicine
DX: M25.562 Pain in left knee (principal); J45.21 Mild intermittent asthma with (acute) exacerbation
CPT/HCPCS: 87633

== ENCOUNTER → 2024-11-27 08:46 | Outpatient (BNV) | payer OTHER, SELFPAY | PROVIDERS: Visit Provider Radiology Diagnostic Radiology | DX: K80.20 Calculus of gallbladder without cholecystitis without obstruction (principal) | CPT/HCPCS: 74183 ==

== ENCOUNTER 2025-02-04 14:18 | Outpatient (REF) | payer OTHER, SELFPAY ==
--- OUTSIDE RECORDS SUMMARY | 2025-02-04 16:41 | XMS_ITS | Encounter Summary ---
Author Organization [employer] Address [address] [facility] [place] [address] Care Team Providers Care Harness Fitter Name Role Phone Meenakshi Denise MD Primary Care Provider [phone] Ngoc Schwartz PharmD Unavailable [phone] Encounter Details Date Type Department Care Team ([facility] Contact Info) Description 07/25/2024 Telephone [facility] [address] [place] [address] Meenakshi Denise MD 505 [place] [address] Social History Tobacco Use Types Packs/Day Years [...] 2:36 PM EDT Tc from aide at [facility] regarding glucose monitor (Blood Glucose Monitoring Suppl (Accu-Chek Imelda Plus) w/Device kit). Aide stated that monitor is unavailable. Contact Aide at [phone] documented in this encounter Plan of Treatment Upcoming Encounters Date Type Department Care Team (Late st Contact Info) Description 02/07/2025 3:00 PM EDT Clinical Support [facility] [address] [place] [address] 02/13/2025 8:30 AM EDT Office Visit [facility] MED & PEDS [address] [place] [address] Meenakshi Denise MD [address] [place] [address] 03/04/2025 2:30 PM EDT Medication Management [facility] MED & PEDS 505 [place] [address] Ngoc Schwartz, PharmD 230 [place] [address] 04/23/2025 2:30 PM EDT Office Visit [facility] [address] [place], [place] [phone] Tim Rachel, OD 230 [place] [address] documented as of this encounter Visit Diagnoses Not on filedocumented in this encounter Additional Health Concerns Assessment Noted Time PHQ-9 Depression Total Score: 0 02/15/20 24 2:57 PM EDT documented as of this encounter Care Teams Harness Fitter Relationship Specialty Start Date End Date Meenakshi Denise MD 230 [place] [address] PCP - General Family Medicine 10/31/13 Ngoc Schwartz PharmD [address] [place] [id number] Pharmacist Internal Medicine 12/11/24 documented as of this encounter
--- OUTSIDE RECORDS SUMMARY | 2025-02-04 16:41 | XMS_ITS | Encounter Summary ---
Author Organization [employer] Address [address] [facility] [address] [place] [address] Care Team Providers Care Crop Grain Or Livestock Farm Manager Name Role Phone Meenakshi Denise MD Primary Care Provider [phone] Ngoc Schwartz PharmD Unavailable [phone] Encounter Details Date Type Department Care Team (Late Contact Info) Description 05/04/2023 Abstract [facility] [address] [place], [place] [phone] Maris Gaines [address] [place] [address] Social History Tobacco Use Types Packs/Day Years [...] Department Care Team (Late Contact Info) Description 02/07/2025 3:00 PM EDT Clinical Support [facility] MED & PED[facility] 505 [place] [address] 02/13/2025 8:30 AM EDT Office Visit [facility] MED [facility] PED[facility] [address] [place] [address] Meenakshi Denise MD 505 [place] [address] 03/04/2025 2:30 PM EDT Medication Management [facility] [address] [place] [address] Ngoc Schwartz, Stephie 230 [place] [address] 04/23/2025 2:30 PM EDT Office Visit [facility] [address] [place] [address] Tim, Rachel, OD 230 [place] [address] documented as of this encounter Visit Diagnoses Not on filedocumented in this encounter Care Teams Crop Grain Or Livestock Farm Manager Relationship Specialty Start Date End Date Meenakshi Denise MD [address] [place] [address] PCP - General Family Medicine 10/31/13 Ngoc Schwartz, Stephie [address] [place] [address] Pharmacist Internal Medicine 12/11/24 documented as of this encounter
--- OUTSIDE RECORDS SUMMARY | 2025-02-04 16:41 | XMS_ITS | Encounter Summary ---
Author Organization [employer] Address 75 [facility]t [place] [address] Care Team Providers Care Monument Setter Helper Name Role Phone Meenakshi Denise MD Primary Care Provider [phone] Ngoc Schwartz PharmD Unavailable [phone] Reason for Visit * Reason Onset Date Comments Nurse Triage 08/28/2024 Encounter Details Date Type Department Care Team (Late st Contact Info) Description 08/28/2024 Telephone [facility] MEDICINE [address] [place] [address] Meenakshi Denise MD [address] [place], [place] [phone] Nurse Triage Social History Tobacco Use Types [...] caller accepted this outcome. Contact pt at [phone] documented in this encounter Plan of Treatment Upcoming Encounters Date Type Department Care Team ([facility] st Contact Info) Description 02/07/2025 3:00 PM EDT Clinical Support [facility] MED & PEDS [address] [place] [address] 02/13/2025 8:30 AM EDT Office Visit [facility] [address] [place] [address] Meenakshi Denise MD 505 [place] [address] 03/04/2025 2:30 PM EDT Medication Management [facility] [address] [place] [address] Ngoc Schwartz, PharmD [address] [place] [address] 04/23/2025 2:30 PM EDT Office Visit [facility] OPTOMETRY [address] [place] [address] Rachel Dumont, OD 230 [place] [address] documented as of this encounter Visit Diagnoses Not on filedocumented in this encounter Additional Health Concerns Assessment Noted Time PHQ-9 Depression Total Score: 0 02/15/20 24 2:57 PM EDT documented as of this encounter Care Teams Monument Setter Helper Relationship Specialty Start Date End Date Meenakshi Denise MD [address] [place] [address] PCP - General Family Medicine 10/31/13 Ngoc Schwartz PharmD [address] [place] [address] Pharmacist Internal Medicine 12/11/24 documented as of this encounter
--- OUTSIDE RECORDS SUMMARY | 2025-02-04 16:41 | XMS_ITS | Encounter Summary ---
Author Organization [employer] Address 75 [facility] 7t [place] [address] Care Team Providers Care Charge Nurse Name Role Phone Meenakshi Denise MD Primary Care Provider [phone] Ngoc Schwartz PharmD Unavailable [phone] Reason for Visit * Reason Onset Date Comments Med Refill 03/03/2023 Encounter Details Date Type Department Care Team (Late Contact Info) Description 03/03/2023 Telephone [facility] MEDICINE 230 [place] [address] Meenakshi Denise MD 505 [place] [address] Med Refill Social History Tobacco Use Types [...] Description 02/07/2025 3:00 PM EDT Clinical Support [facility]EDS [address] [place] [address] 02/13/2025 8:30 AM EDT Office Visit [facility] [address] [place] [address] Meenakshi Denise MD 505 [place] [address] 03/04/2025 2:30 PM EDT Medication Management [facility] MED & PEDS [address] [place] [address] Ngoc Schwartz PharmD 230 [place] [address] 04/23/2025 2:30 PM EDT Office Visit [facility] OPTOMET[facility] [address] [place] [address] Tim, Rachel, OD 230 [place] [address] documented as of this encounter Visit Diagnoses Not on filedocumented in this encounter Care Teams Charge Nurse Relationship Specialty Start Date End Date Meenakshi Denise MD 230 [place] [address] PCP - General Family Medicine 10/31/13 Ngoc Schwartz PharmD [address] [place] [address] Pharmacist Internal Medicine 12/11/24 documented as of this encounter
--- OUTSIDE RECORDS SUMMARY | 2025-02-04 16:41 | XMS_ITS | Encounter Summary ---
Author Organization [employer] Address 75 [facility] 7t [place] [address] Care Team Providers Care Cooler Operator Name Role Phone Meenakshi Denise MD Primary Care Provider [phone] Ngoc Schwartz PharmD Unavailable [phone] Reason for Visit * Reason Comments Med Refill Encounter Details Date Type Department Care Team (Late Contact Info) Description 02/22/2023 Refill [facility] MEDICINE [address] [place] [address] Meenakshi Denise MD 505 [place] [address] Social History Tobacco Use Types Packs/Day Years [...] Description 02/07/2025 3:00 PM EDT Clinical Support [facility] MED [facility]EDS 505 [place] [address] 02/13/2025 8:30 AM EDT Office Visit [facility] MED & PEDS [address] [place] [address] Meenakshi Denise MD 505 [place] [address] 03/04/2025 2:30 PM EDT Medication Management [facility] MED [facility] PEDS [address] [place] [address] Ngoc Schwartz, Stephie 230 [place] [address] 04/23/2025 2:30 PM EDT Office Visit [facility] OPTOMETRY [address] [place], [place] [phone] Rachel Dumont, OD 230 [place] [address] documented as of this encounter Visit Diagnoses Not on filedocumented in this encounter Care Teams Cooler Operator Relationship Specialty Start Date End Date Meenakshi Denise MD [address] [place] [address] PCP - General Family Medicine 10/31/13 Ngoc Schwartz, Stephie [address] [place] [address] Pharmacist Internal Medicine 12/11/24 documented as of this encounter
--- OUTSIDE RECORDS SUMMARY | 2025-02-04 16:41 | XMS_ITS | Encounter Summary ---
Author Organization [employer] Address [address] [facility] [address] [place] [address] Care Team Providers Care Aviation Metalsmith Name Role Phone Meenakshi Denise MD Primary Care Provider [phone] Ngoc Schwartz PharmD Unavailable [phone] Encounter Details Date Type Department Care Team ([facility] Contact Info) Description 01/03/2023 Telephone [facility] MEDICINE 230 [place], [place] [phone] Meenakshi Denise MD 505 [place] [address] Social History Tobacco Use Types Packs/Day Years [...] Upcoming Encounters Date Type Department Care Team ([facility] Contact Info) Description 02/07/2025 3:00 PM EDT Clinical Support [facility] MED & PEDS 505 [place] [address] 02/13/2025 8:30 AM EDT Office Visit [facility] & PEDS 505 [place], [place] [phone] Meenakshi Denise MD [address] [place] [address] 03/04/2025 2:30 PM EDT Medication Management [facility] MED & PEDS [address] [place], [place] [phone] Ngoc Schwartz PharmD 230 [place] [address] 04/23/2025 2:30 PM EDT Office Visit [facility] OPTOMETRY [address] [place] [address] Rachel Dumont, OD 230 [place] [address] documented as of this encounter Visit Diagnoses Not on filedocumented in this encounter Care Teams Aviation Metalsmith Relationship Specialty Start Date End Date Meenakshi Denise MD 230 [place] [address] PCP - General Family Medicine 10/31/13 Ngoc Schwartz PharmD [address] [place] [address] Pharmacist Internal Medicine 12/11/24 documented as of this encounter
--- OUTSIDE RECORDS SUMMARY | 2025-02-04 16:41 | XMS_ITS | Encounter Summary ---
Author Organization [employer] Address 75 [facility] 7t [place] [address] Care Team Providers Care Electric Range Preparer Name Role Phone Meenakshi Deinse MD Primary Care Provider [phone] Ngoc Schwartz PharmD Unavailable [phone] Reason for Visit * Reason Onset Date Comments Nurse Triage 02/23/2024 Encounter Details Date Type Department Care Team ([facility] st Contact Info) Description 02/23/2024 Telephone [facility] MED & PEDS [address] [place] [address] Meenakshi Denise MD 505 [place] [address] Nurse Triage Social History Tobacco Use Types [...] Description 02/07/2025 3:00 PM EDT Clinical Support [facility] MED & PEDS [address] [place] [address] 02/13/2025 8:30 AM EDT Office Visit [facility] MED [facility] PEDS [address] [place] [address] Meenakshi Denise MD 505 [place] [address] 03/04/2025 2:30 PM EDT Medication Management [facility] MED & PEDS [address] [place] [address] Ngoc Schwartz, PharmD 230 [place] [address] 04/23/2025 2:30 PM EDT Office Visit [facility] OPTOMETRY [address] [place] [address] Rachel Dumont, OD [address] [place] [address] documented as of this encounter Visit Diagnoses Not on filedocumented in this encounter Additional Health Concerns Assessment Noted Time PHQ-9 Depression Total Score: 0 02/15/20 24 2:57 PM EDT documented as of this encounter Care Teams Electric Range Preparer Relationship Specialty Start Date End Date Meenakshi Denise MD [address] [place] [address] PCP - General Family Medicine 10/31/13 Ngoc Schwartz PharmD [address] [place] [address] Pharmacist Internal Medicine 12/11/24 documented as of this encounter
--- OUTSIDE RECORDS SUMMARY | 2025-02-04 16:41 | XMS_ITS | Encounter Summary ---
Author Organization [employer] Address [address] [facility] [address] [place] [address] Care Team Providers Care Wire Cutter Name Role Phone Meenakshi Denise MD Primary Care Provider [phone] Ngoc Schwartz PharmD Unavailable [phone] Reason for Visit * Reason Comments Pre-visit Planning SDOH screening negat dorothy and Tobacco screening negative Encounter Details Date Type Department Care Team ([facility] st Contact Info) Description 02/01/2025 Patient Outreach [facility] MEDICINE [address] [place] [address] Valente Caruso Pre-visit Planning (SDOH screening negative and Tobacco screening negative) Social History Tobacco Use Types Packs/Day Years [...] Recorded Patient Health Questionnaire-2 Score 0 02/15/2024 Internet Access Answer Date Recorded Internet Access Q1 Yes 02/01/2025 Internet Access Q2 Not on file 02/01/2025 Comments No Sex and Gender Information Value Date Recorded Sex Assigned at Female 08/23/2022 10:21 AM EDT Legal Sex Female 10:21 AM EDT Gender Identity Female 08/23/2022 10:21 AM EDT Sexual Orientation Choose not to disclose 2021 10:21 AM EDT documented as of this encounter Progress Notes * Valente Caruso - 02/01/2025 1:35 PM EDT CC Valente murdock successful outbound call to patient for pre-visit planning. Patient name and confirmed. Patient confirms appt date and time, and has transportation arrangements. Biggest concern for appointment at this time is no concerns. Patient advised to bring to appointment a photo id and insurance card. Appropriate screenings completed in anticipation of appointment. documented in this encounter Plan of Treatment Upcoming Encounters Date Type Department Care Team ([facility] st Contact Info) Description 02/07/2025 3:00 PM EDT Clinical Support [facility] MED & PEDS [address] [place] [address] 02/13/2025 8:30 AM EDT Office Visit [facility] MED & PEDS [address] [place] [address] Meenakshi Denise MD 505 [place] [address] 03/04/2025 2:30 PM EDT Medication Management [facility] MED & PEDS [address] [place] [address] Ngoc Schwartz, PharmD 230 [place] [address] 04/23/2025 2:30 PM EDT Office Visit [facility] OPTOMETRY [address] [place] [address] Rachel Dumont, OD 230 [place] [address] documented as of this encounter Visit Diagnoses Not on filedocumented in this encounter Additional Health Concerns Assessment Noted Time PHQ-9 Depression Total Score: 0 02/15/20 24 2:57 PM EDT documented as of this encounter Care Teams Wire Cutter Relationship Specialty Start Date End Date Meenakshi Denise MD 230 [place] [address] PCP - General Family Medicine 10/31/13 Ngoc Schwartz PharmD [address] [place], [place] [phone] Pharmacist Internal Medicine 12/11/24 documented as of this encounter
--- OUTSIDE RECORDS SUMMARY | 2025-02-04 16:41 | XMS_ITS | Clinical Summary ---
Author Organization [employer] Address [address] [facility] 7t [place] [address] Care Team Providers Care Customer Care Agent Name Role Phone Meenakshi Denise MD Primary Care Provider [phone] Ngoc Schwartz PharmD Unavailable [phone] Allergies Active Allergy Reactions Criticality Noted Date Comments Glipizide High 06/12/2015 Other reaction(s): Stomach Pain/ nausea/palpitation Medications cholecalciferol (Vitamin D-3) 50 MCG (1999) tablet Take by mouth. 05/02/20 18 Active amLODIPine (Norvasc) 10 MG tablet TAKE ONE TABLET BY MOUTH EVERY DAY 30 tablet 11 03/30/20 24 Active lisinopril 5 MG tablet Take 1 tablet (5 mg) by mouth Once per day. 30 tablet 11 05/18/20 24 025 Active Blood Glucose Monitoring Suppl (Accu-Chek Imelda [...] before bedtime. 1 each 07/24/20 24 Active albuterol 108 (90 Base) MCG/ACT inhalerIndicati ons:Mild intermittent asthma with acute exacerbation Inhale 2 puffs every 6 (six) hours. 18 g 08/29/20 24 Active empagliflozin (Jardiance) 10 MGIndications:T ype 2 diabetes mellitus without complication, without long-term current use of insulin ([facility]) Take 1 tablet (10 mg) by mouth Once per day. 90 tablet 3 12/14/19 25 Active Continuous Glucose Sensor (FreeStyle Neida 3 Plus Sensor) misc 1 each every 15 days. 2 each 12/20/19 25 Active glucose blood (FreeStyle Precision Eleno Test) test stripIndication s:Type 2 diabetes mellitus without complication, without long-term current use of insulin ([facility]) Test blood sugar up to 3 times daily as directed 100 each 11 12/20/19 25 026 Active metoprolol succinate XL (Toprol-XL) 200 MG 24 hr tabletIndicatio ns:Hypertension , unspecified type TAKE ONE TABLET BY MOUTH EVERY DAY 30 tablet 5 01/04/20 25 Active glyBURIDE (Diabeta) 5 MG tablet Take 2 tablets (10mg) before breakfast and 1 tablet (5mg) before dinner. 01/23/20 25 Active glyBURIDE (Diabeta) 5 MG tablet TAKE 2 TABLETS BY MOUTH WITH BREAKFAST AND WITH EVENING MEAL 120 tablet 5 12/14/19 25 025 Discontinued(Re order (will not trigger notification to Pharmacy)) Active Problems Problem Noted Date Diagnosed Date Fear of needles 12/13/2024 Mild intermittent asthma with (acute) exacerbati on [...] Encounters Date Type Department Care Team Description 02/01/2025 Telephone [facility] [address] [place] [address] Ngoc Schwartz, Stephie 02/01/2025 Patient Outreach [address] [address] Valente Caruso Pre-visit Planning (SDOH screening negative and Tobacco screening negative) 01/22/2025 Travel 01/09/2025 2:30 PM EDT Clinical Support [facility] [address] [place] [address] Madison Ferraro, RN Type 2 diabetes mellitus without complication, without long-term current use of insulin (CMS/HCC) 01/09/2025 Travel 01/07/2025 Telephone [facility] [address] [place] [address] Meenakshi Denise MD Medication Question 12/29/[address] [address] Meenakshi Denise MD Hypertension, unspecified type 12/25/2024 1:30 PM EST Clinical Support [facility] [address] [place] [address] Hali Kruse, ЕЛЕНА Type 2 diabetes mellitus without complication, without long-term current use of insulin (CMS/HCC) [E11.9] 12/25/2024 Travel 12/20/2024 Telephone [facility] [address] [place] [address] Meenakshi Denise MD Appointment Request (CGM initial teaching) 12/20/2024 Telephone [facility] [address] [place] [address] Ngoc Schwartz, Stephie 12/14/2024 Refill [facility] [address] [place] [address] Ngoc Schwartz, PharmGeorge Type 2 diabetes mellitus without complication, without long-term current use of insulin (CMS/HCC) 12/14/2024 Refill [facility] [address] [place] [address] Meenakshi Denise MD 12/13/2024 Telephone [facility] [address] [place] [address] Ngoc Schwartz, PharmD Prior Authorization 12/13/2024 Orders Only [facility] [address] [place] [address] Meenakshi Denise MD Fear of needles (Primary Dx) 12/11/2024 Travel 11/22/2024 Telephone [facility] [address] [place] [address] Meenakshi Denise MD 11/22/2024 Orders Only [facility] [address] [place] [address] Meenakshi Denise MD Type 2 diabetes mellitus without complication, without long-term current use of insulin ([facility]) (Primary Dx) 11/14/[address] [address] Meenakshi Denise MD from Last 3 Months Immunizations Name Administration Dates Next Due Hep A, Adult 10/28/2020,11/19/2019 Hep B, adult 06/09/2020,04/10/2020,11/19/2019 Influenza Quadrivalent Adjuvanted 08/15/2023,01/2022 Influenza, High Dose Seasona l, Preservative Free 07/18/2024 Pfizer Covid-19 Vaccine 12+ 02/25/2021,0 02/25/2021,02/04/2021,2020 Pfizer [...] Sign Reading Time Taken Comments Blood Pressure 136/70 01/09/2025 3:19 PM EDT Pulse 62 01/09/2025 3:19 PM EDT Temperature 36.4 ??C (97.6 ??F) 09/05/2024 9:04 AM ES T Respiratory Rate 17 09/05/2024 9:04 AM EST Oxygen Saturation 98% 09/05/2024 9:04 AM EST Inhaled Oxygen Concentration - - Weight 62.7 kg (138 lb 3.2 oz) 01/09/2025 3:19 P M EDT Height 152.4 cm (5') 07/11/2024 9:11 AM EDT Body Mass Index 26.99 07/11/2024 9:11 AM EDT Plan of Treatment Upcoming Encounters Date Type Department Care Team ([facility] st Contact Info) Description 02/07/2025 3:00 PM EDT Clinical Support [facility] [address] [place] [address] 02/13/2025 8:30 AM EDT Office Visit [facility] [address] [place] [address] Meenakshi Denise MD [address] [place] [address] 03/04/2025 2:30 PM EDT Medication Management [facility] [address] [place] [address] Ngoc Schwartz, PharmD [address] [place] [address] 04/23/2025 2:30 PM EDT Office Visit [facility] [address] [place] [address] Rachel Dumont, OD [address] [place] [address] Health Maintenance Due Date Last Done Comments [...] 1-dose series) 2017 Mammogram 03/23/2021 03/23/2019, 01/20/2018 Dental Prophylaxis 09/07/2024 03/06/2024, 04/06/2023 Dental Oral Exam 10/20/2024 04/19/2024, 01/18/2023 Depression Screening 02/14/2025 02/15/2024, 02/15/20 Dental X-Ray: Bitewings 03/07/2025 03/06/20 24, 01/18/2023, 01/03/2023 Diabetes: Hemoglobin A1C 03/10/2025 025, 05/18/2024, 02/28/2024, Additional history exists Diabetes: Foot Exam 03/14/2025 03/14/2024, 03/14/2024, 03/14/2024, Additional history exists Eye Exam 05/05/2025 05/05/2023, 04/23, 05/05/2023, Additional history exists Lipid Panel 05/18/2025 05/18/2024, 02/28/2024 Tobacco Screening 09/05/2025 09/05/2024 Dental X-Ray: Full Mouth 01/19/2026 01/18/2023 SDOH Screening 02/01/2026 02/01/2025 DTaP/Tdap/Td Vaccines (3 - Td or Tdap) 05/02/2028 05/02/2018, 02/03/2011, 09/07/2002 Hepatitis B Vaccines Completed 06/09/2020, 04/10/2020, 11/19/2019 Hepatitis A Vaccines Aged Out 10/28/2020, 11/19/19 No longer eligible based on patient's age [...] Procedure Name Priority Date/Time Associated Diagnosis Comments POCT GLYCATED HEMOGLOBIN, TOTAL Routine 12/11/2024 3:07 PM EST Type 2 diabetes mellitus without complication, without long-term current use of insulin ([facility]) LIPID PANEL, STANDARD Routine 05/18/2024 12:00 AM EDT Type 2 diabetes mellitus without complication, without long-term current use of insulin ([facility]) PERIODIC ORAL EVALUATION - ESTABLISHED [...] Relevant to Health Maintenance Results * (ABNORMAL) POCT A1C (12/11/2024 3:07 PM EST) Hemoglobin A1C 10.4(A) 4.0 - 6.0 % QC Media Lot # [id number] Lot# Expiration Date ,[id number] Blood 12/11/2024 3:07 PM EST Dominique Blake MD POINT OF CARE TEST ENTER/ED IT ORDERABLES Final Result * (ABNORMAL) Lipid Panel, Standard (05/18/2024 12:00 AM EDT) Triglycerides 102 <150 mg/dL [facility] Comment:Desirable Triglyceri de: less than 150 mg/dLBorderline High Triglyceride 150-199 mg/dLHigh Triglyceride: 200-499 mg/dLVery High Triglyceride: greater than or equal to 5OO mg/dL Cholesterol 170 <200 mg/dL [facility] Comment:Desirable Cholestero l: less than 200 mg/dLBorderline High Cholesterol: 200-239 mg/dLHigh Cholesterol: greater than 239 mg/dL LDL Cholesterol Calculated 101(H) <100 mg/dL [facility] Comment:Desirable LDL: less than 100 mg/dLNear Optimal/Above Optimal LDL: 110- 129 mg/dLBorderline High LDL: 130-159 mg/dLHigh LDL: 160-189 mg/dLVery High LDL: greater than or equal to 190 mg/dL HDL Cholesterol 49 >40 mg/dL [facility] Comment:Desirable HDL: great er than 40 mg/dL Note: This HDL assay may give artificially low results in patients with liver disease. Blood Venous blood specimen / Unknown 05/18/2024 05/18/2024 us Meenakshi Denise MD LAB BLOOD ORDERABLES Final Resul t [facility] [address] [place] [phone] * DIGITAL BILATERAL SCREEN 1 (03/23/2019 3:47 PM EDT) Anatomical Region Laterality Modality Breast Bilateral Mammography 03/23/2019 3:47 PM EDT Narrative 03/23/2019 3:47 PM EDT Refer to the Notes tab for result details [facility] Procedure: DIGITAL BILATERAL SCREEN 1 Procedure Note Provider, MD Justin - 01/15/2023 Refer to the Notes tab for result details Legacy Procedure: DIGITAL BILATERAL SCREEN 1 us Meenakshi Denise MD IMG BI PROCEDURES Final Result from Last 3 Months or Most Recently Relevant to Health Maintenance Insurance [facility] MEDICARE DENTAL [place] [id number] Care Teams Customer Care Agent Relationship Specialty Start Date End Date Meenakshi Denise MD [address] [place] [address] PCP - General Family Medicine 10/31/13 Ngoc Schwartz PharmD [address] [place] [address] Pharmacist Internal Medicine 12/11/24
--- OUTSIDE RECORDS SUMMARY | 2025-02-04 16:41 | XMS_ITS | Encounter Summary ---
Author Organization [employer] Address [address] [facility] [address] [place] [address] Care Team Providers Care Identity Management Developer Name Role Phone Meenakshi Denise MD Primary Care Provider [phone] Ngoc Schwartz PharmD Unavailable [phone] Encounter Details Date Type Department Care Team (Late Contact Info) Description 12/08/2023 Telephone [facility] [address] [place] [address] Amarilys Salazar LPN Social History Tobacco Use [...] Upcoming Encounters Date Type Department Care Team ([facility] Contact Info) Description 02/07/2025 3:00 PM EDT Clinical Support [facility] [address] [place] [address] 02/13/2025 8:30 AM EDT Office Visit [facility] [address] [place] [address] Meenakshi Denise MD [address] [place] [address] 03/04/2025 2:30 PM EDT Medication Management [facility] [address] [place], [place] [phone] Ngoc Schwartz, Stephie [address] [place] [address] 04/23/2025 2:30 PM EDT Office Visit [facility] [address] [place] [address] TimRachel her, OD [address] [place] [address] documented as of this encounter Visit Diagnoses Not on filedocumented in this encounter Care Teams Identity Management Developer Relationship Specialty Start Date End Date Meenakshi Denise MD [address] [place] [address] PCP - General Family Medicine 10/31/13 Ngoc Schwartz PharmD [address] [place] [address] Pharmacist Internal Medicine 12/11/24 documented as of this encounter
--- OUTSIDE RECORDS SUMMARY | 2025-02-04 16:41 | XMS_ITS | Encounter Summary ---
Author Organization [employer] Address [address] [facility] [address] 7[address] [place] [address] Care Team Providers Care Veterinary Technology Instructor Name Role Phone Meenakshi Denise MD Primary Care Provider [phone] Ngoc Schwartz PharmD Unavailable [phone] Encounter Details Date Type Department Care Team (Late st Contact Info) Description 02/01/2025 Telephone [facility] [address] [place], [place] [id number] Ngoc Schwartz, PharmD [address] [place] [address] Social History Tobacco Use Types Packs/Day Years [...] encounter Miscellaneous Notes * Telephone Encounter - Ngoc Schwartz PharmD - 02/01/2025 3:07 PM EDT Called patient for check-in re: CGM and hypoglycemia. Patient reports not experiencing any low readings in the 3 days after decreasing PM glyburide dose from 2 tablets to 1 tablet, but it has since happened a few times. Reports readings of 65mg/dl and 69mg/dl, only occurring overnight. Denies switching arms but has been trying to sleep on that side less often. Denies verifying hypoglycemia with afingerstick but aware that this is the recommended course of action to determine if truly low (however patient has needle phobia). Will call patient for continued follow-up next week. documented in this encounter Plan of Treatment Upcoming Encounters Date Type Department Care Team (Late st Contact Info) Description 02/07/2025 3:00 PM EDT Clinical Support [facility] [address] [facility] [place] [address] 02/13/2025 8:30 AM EDT Office Visit [facility] [address] [facility] [place] [address] Meenakshi Denise MD [address] [place] [address] 03/04/2025 2:30 PM EDT Medication Management [facility] [address] [place] [address] Ngoc Schwartz PharmD [address] [place] [address] 04/23/2025 2:30 PM EDT Office Visit [facility] [address] [place] [address] Tim, Rachel, OD [address] [place] [address] documented as of this encounter Visit Diagnoses Not on filedocumented in this encounter Additional Health Concerns Assessment Noted Time PHQ-9 Depression Total Score: 0 02/15/20 24 2:57 PM EDT documented as of this encounter Care Teams Veterinary Technology Instructor Relationship Specialty Start Date End Date Meenakshi Denise MD [address] [place] [address] PCP - General Family Medicine 10/31/13 Ngoc Schwartz PharmD [address] [place] [address] Pharmacist Internal Medicine 12/11/24 documented as of this encounter
--- OUTSIDE RECORDS SUMMARY | 2025-02-04 16:41 | XMS_ITS | Encounter Summary ---
Author Organization [employer] Address [address] [facility] 7t [place] [address] Care Team Providers Care Vice President Client Services Name Role Phone Meenakshi Denise MD Primary Care Provider [phone] Ngoc Schwartz PharmD Unavailable [phone] Reason for Visit * Reason Comments Med Refill Encounter Details Date Type Department Care Team (Late Contact Info) Description 03/03/[address] [facility] [address] [place] [address] Meenakshi Denise MD [address] [place] [address] Social History Tobacco Use Types Packs/Day Years [...] Description 02/07/2025 3:00 PM EDT Clinical Support [facility] [address] [place] [address] 02/13/2025 8:30 AM EDT Office Visit [facility] [address] [place] [address] Meenakshi Denise MD [address] [place] [address] 03/04/2025 2:30 PM EDT Medication Management [facility] [address] [place] [address] Ngoc Schwratz, Stephie [address] [place] [address] 04/23/2025 2:30 PM EDT Office Visit [facility] [address] [place], [place] [phone] Rachel Dumont, OD [address] [place] [address] documented as of this encounter Visit Diagnoses Not on filedocumented in this encounter Care Teams Vice President Client Services Relationship Specialty Start Date End Date Meenakshi Denise MD [address] [place] [address] PCP - General Family Medicine 10/31/13 Ngoc Schwartz, Stephie [address] [place] [address] Pharmacist Internal Medicine 12/11/24 documented as of this encounter
--- OUTSIDE RECORDS SUMMARY | 2025-02-04 16:41 | XMS_ITS | Encounter Summary ---
Author Organization [employer] Address [address] [place] [address] Care Team Providers Care Net Developer Consultant Name Role Phone Meenakshi Denise MD Primary Care Provider [phone] Ngoc Schwartz PharmD Unavailable [phone] Reason for Visit * Reason Onset Date Comments callback requested 08/29/2024 Encounter Details Date Type Department Care Team ([facility] st Contact Info) Description 08/29/2024 Telephone [facility] [address] [place] [address] Meenakshi Denise MD [address] [place], [place] [phone] callback requested Social History Tobacco Use Types [...] Home care is reviewed. ASK apt in PSYCHIATRIC today at 320pm. Pt agrees with disposition [...] 02/07/2025 3:00 PM EDT Clinical Support [facility] [address] [place] [address] 02/13/2025 8:30 AM EDT Office Visit [facility] [address] [place] [address] Meenakshi Denise MD [address] [place] [address] 03/04/2025 2:30 PM EDT Medication Management [facility] [address] [place] [address] Ngoc Schwartz PharmGeorge [address] [place] [address] 04/23/2025 2:30 PM EDT Office Visit [facility] OPT[facility] [address] [place] [address] Tim, Rachel, OD [address] [place] [address] documented as of this encounter Visit Diagnoses Not on filedocumented in this encounter Additional Health Concerns Assessment Noted Time PHQ-9 Depression Total Score: 0 02/15/20 24 2:57 PM EDT documented as of this encounter Care Teams Net Developer Consultant Relationship Specialty Start Date End Date Meenakshi Denise MD [address] [place] [address] PCP - General Family Medicine 10/31/13 Ngoc Schwartz, JonaD [address] [place] [address] Pharmacist Internal Medicine 12/11/24 documented as of this encounter
[2025-02-04 18:04] LABS: Creatinine Urine 55.81 mg/dL; Microalbum/Creatinine Ratio Ur 10.7 ug/mg cr (<30)
[2025-02-04 18:11] LABS: TSH reflex Free T4 2.04 uIU/mL (0.32-4.0)
== END 2025-02-04 14:19 | disposition home or self-care (01) ==
LOC: HO.CHCLDS 14:18
PROVIDERS: PCP Student in an Organized Health Care Education/Training Program; Referring Provider Internal Medicine; Visit Provider Student in an Organized Health Care Education/Training Program
DX: E11.9 Type 2 diabetes mellitus without complications (principal)
CPT/HCPCS: 36415; 82043; 82570; 84443

== ENCOUNTER 2025-03-15 07:56 | Day surgery (SDC) | payer MEDICARE, SELFPAY ==
--- OUTSIDE RECORDS SUMMARY | 2024-12-11 15:06 | XMS_ITS | Encounter Summary ---
Author Organization [employer] Address [address] [place] [address] Care Team Providers Care Processing Associate Name Role Phone Meenakshi Denise MD Primary Care Provider [phone] Encounter Details Date Type Department Care Team ([facility] Contact Info) Description 07/25/2024 Telephone [facility]S [address] [place] [address] Meenakshi Denise MD [address] [place], [place] Social History Tobacco Use Types Packs/Day Years Used Date Smoking Tobacco: Never Smokeless Tobacco: Never Alcohol Use Standard Drinks/Week Comments Yes 0 (1 standard drink = 0.6 oz pur e alcohol) Depression Answer Date Recorded Patient Health Questionnaire-9 Score 0 02/15/2024 Patient Health Questionnaire-9 Score 0 02/15/2024 Last PHQ-9: Questionnaire Data Not on file 0 02/15/2024 Housing Stability Answer Date Recorded What is your housing situation today? I have osmani mancuso 02/15/[address] you li ve. Do you have problems with any of the following? None of the above 02/15/2024 Food Insecurity Answer Date Recorded Within the past 12 months, y ou worried that your food would run out before you got money to buy more: Never True 02/15/2024 Within the past 12 months,th e food you bought just didn't last and you didn't have enough money to get more: Never True Transportation Answer Date Recorded In the past 12 months, has l ack of transportation kept you from medical appts, meetings, work or from getting things needed for daily living? No 02/15/2024 Utilities Answer Date Recorded In the past 12 months, has t he electric, gas, oil or water company threatened to shut off services in your home? No 02/15/2024 Depression Answer Date Recorded Patient Health Questionnaire-2 Score 0 02/15/2024 Comments No Sex and Gender Information Value Date Recorded Sex Assigned at Female 08/23/2022 10:21 AM EDT Legal Sex Female 10:21 AM EDT Gender Identity Female 08/23/2022 10:21 AM EDT Sexual Orientation Choose not to disclose 2021 10:21 AM EDT documented as of this encounter Miscellaneous Notes * Telephone Encounter - Maris Cohen - 07/25/2024 2:36 PM EDT Tc from aide at [facility] regarding glucose monitor (Blood Glucose Monitoring Suppl (Accu-Chek Imelda Plus) w/Device kit). Aide stated that monitor is unavailable. Contact Aide at [phone] documented in this encounter Plan of Treatment Upcoming Encounters Date Type Department Care Team (Late st Contact Info) Description 01/14/2025 2:30 PM EDT Medication Management [facility] MED & PEDS [address] [place] [address] Ngoc Schwartz PharmD [address] [place] [address] 01/22/2025 9:00 AM EDT Office Visit [facility] ADULT DENTAL [address] [place] [address] Amy Monahan documented as of this encounter Visit Diagnoses Not on filedocumented in this encounter Additional Health Concerns Assessment Noted Time PHQ-9 Depression Total Score: 0 02/15/20 2:57 PM EDT documented as of this encounter Care Teams Processing Associate Relationship Specialty Start Date End Date Meenakshi Denise MD [address] [place] [address] PCP - General Family Medicine 10/31/13 documented as of this encounter
--- OUTSIDE RECORDS SUMMARY | 2024-12-11 15:06 | XMS_ITS | Encounter Summary ---
Author Organization [employer] Address [address] [place] [address] Care Team Providers Care Director Of Perioperative Services Name Role Phone Meenakshi Denise MD Primary Care Provider [phone] Reason for Visit * Reason Onset Date Comments Nurse Triage 08/28/2024 Encounter Details Date Type Department Care Team ([facility] st Contact Info) Description 08/28/2024 Telephone [facility] MEDICINE [address] [place] [address] Meenakshi Denise MD [address] [place] [address] Nurse Triage Social History Tobacco Use Types Packs/Day Years [...] encounter Miscellaneous Notes * Telephone Encounter - Maik Shah - 08/28/2024 8:35 AM EST Symptom: Cough Outcome: Schedule an appointment to be seen within 24 hours Reason: Caller denied all higher acuity questions The caller accepted this outcome. Contact pt at [phone] documented in this encounter Plan of Treatment Upcoming Encounters Date Type Department Care Team (Late st Contact Info) Description 01/14/2025 2:30 PM EDT Medication Management [facility] CHC MED & PEDS [address] [place] [address] Ngoc Schwartz, PharmD [address] [place] [address] 01/22/2025 9:00 AM EDT Office Visit [facility] ADULT DENTAL [address] [place] [address] Amy Monahan documented as of this encounter Visit Diagnoses Not on filedocumented in this encounter Additional Health Concerns Assessment Noted Time PHQ-9 Depression Total Score: 0 02/15/20 24 2:57 PM EDT documented as of this encounter Care Teams Director Of Perioperative Services Relationship Specialty Start Date End Date Meenakshi Denise MD [address] [place] [address] PCP - General Family Medicine 10/31/13 documented as of this encounter
--- OUTSIDE RECORDS SUMMARY | 2024-12-11 15:06 | XMS_ITS | Encounter Summary ---
Author Organization [employer] Address [address] [place] [address] Care Team Providers Care Bullet Assembly Press Setter Operator Name Role Phone Meenakshi Denise MD Primary Care Provider [phone] Encounter Details Date Type Department Care Team (Late Contact Info) Description 12/08/2023 Telephone [facility] MED & PEDS [address] [place], [place] [id number] Amarilys Salazar LPN Social History Tobacco Use Types Packs/Day Years Used Date Smoking Tobacco: Never Smokeless Tobacco: Never Comments Unknown Sex and Gender Information Value Date Recorded Sex Assigned at Female 08/23/2022 10:21 AM EDT Legal Sex Female 10:21 AM EDT Gender Identity Female 08/23/2022 10:21 AM EDT Sexual Orientation Choose not to disclose 2021 10:21 AM EDT documented as of this encounter Miscellaneous Notes * Telephone Encounter - Amarilys Salazar LPN - 12/08/2023 9:34 AM EST Telephone call placed to patient. Patient was confirmed by last name and . Patient made aware that child is due for A1C testing. Patient agrees to have testing appt on 12/13/23 . documented in this encounter Plan of Treatment Upcoming Encounters Date Type Department Care Team ([facility] Contact Info) Description 01/14/2025 2:30 PM EDT Medication Management [facility] MED & PEDS [address] [place], [place] [phone] Ngoc Schwartz PharmD [address] [place] [address] 01/22/2025 9:00 AM EDT Office Visit [facility] ADULT DENTAL [address] [place] [address] Amy Monahan documented as of this encounter Visit Diagnoses Not on filedocumented in this encounter Care Teams Bullet Assembly Press Setter Operator Relationship Specialty Start Date End Date Meenakshi Denise MD [address] [place] [address] PCP - General Family Medicine 10/31/13 documented as of this encounter
--- OUTSIDE RECORDS SUMMARY | 2024-12-11 15:06 | XMS_ITS | Encounter Summary ---
Author Organization [employer] Address [address] [place] [address] Care Team Providers Care Ornamenter Hand Name Role Phone Meenakshi Denise MD Primary Care Provider [phone] Reason for Visit * Reason Onset Date Comments callback requested 08/29/2024 Encounter Details Date Type Department Care Team ([facility] st Contact Info) Description 08/29/2024 Telephone [facility] MEDICINE [address] [place] [address] Meenakshi Denise MD [address] [place] [address] callback requested Social History Tobacco Use Types Packs/Day Years [...] encounter Miscellaneous Notes * Telephone Encounter - Shikha Garcia RN - 08/29/2024 10:05 AM EST Triage call Pt reports cough which started and has progressively gotten worse. Pt reports abdominal pain from coughing so much, cough is producing green phlegm. Pt also reports nasal congestion. Pt is neg for fever but, cough causes some difficulty breathing at times. Pt reports has had these symptoms in the past and it was bronchitis. Pt requests to be seen . Home care is reviewed. [facility]K apt in [facility] today at 320pm. Pt agrees with disposition . Unable to verify insurance due to computer error. Protocol Used: Cough (Adult) Protocol-Based Disposition: See in Office or Video Visit Today or Tomorrow Video visit not offered Positive Triage Questions: * Continuous (nonstop) coughing interferes with work or school and no improvement using cough treatment per Care Advice * Patient wants to be seen * All higher-acuity triage questions were negative Care Advice Discussed: * Reassurance and Education - Cough * Cough Medicines * Coughing Spells * Prevent Dehydration * Humidifier * Reasons To Call Back - Difficulty breathing - Cough lasts more than 3 weeks - Fever lasts more than 3 days - You become worse * Telephone Encounter - Sylwia Lindsey - 08/29/2024 8:33 AM EST Tc from pt requesting a callback from triage , pt stating she didn't see missed call and symptoms are still the same. documented in this encounter Plan of Treatment Upcoming Encounters Date Type Department Care Team (Late st Contact Info) Description 01/14/2025 2:30 PM EDT Medication Management [facility] CHC MED & PEDS [address] [place] [address] Ngoc Schwartz PharmD [address] [place] [address] 01/22/2025 9:00 AM EDT Office Visit [facility] ADULT DENTAL [address] [place] [address] Amy Monahan documented as of this encounter Visit Diagnoses Not on filedocumented in this encounter Additional Health Concerns Assessment Noted Time PHQ-9 Depression Total Score: 0 02/15/20 24 2:57 PM EDT documented as of this encounter Care Teams Ornamenter Hand Relationship Specialty Start Date End Date Meenakshi Denise MD [address] [place] [address] PCP - General Family Medicine 10/31/13 documented as of this encounter
--- OUTSIDE RECORDS SUMMARY | 2024-12-11 15:06 | XMS_ITS | Encounter Summary ---
Author Organization [employer] Address [address] [place] [address] Care Team Providers Care Marine Diver Name Role Phone Meenakshi Denise MD Primary Care Provider [phone] Encounter Details Date Type Department Care Team ([facility] st Contact Info) Description 11/14/2024 Telephone [facility] MEDICINE [address] [place] [address] Meenakshi Denise MD [address] [place], [place] [phone] Social History Tobacco Use Types Packs/Day Years [...] encounter Miscellaneous Notes * Telephone Encounter - Tammi Sheth - 11/14/2024 1:58 PM EST Patient was seen by inclusion special educator within the past 6 months and would benefit from a transition to the pharmacy CDTM program. Please send a referral for CDTM - Diabetes to ensure continuity of care. Thank you! documented in this encounter Plan of Treatment Upcoming Encounters Date Type Department Care Team (Late st Contact Info) Description 01/14/2025 2:30 PM EDT Medication Management [facility] CHC MED & PEDS [address] [place] [address] Ngoc Schwartz, JonaD [address] [place] [address] 01/22/2025 9:00 AM EDT Office Visit [facility] ADULT DENTAL [address] [place] [address] Amy Monahan documented as of this encounter Visit Diagnoses Not on filedocumented in this encounter Additional Health Concerns Assessment Noted Time PHQ-9 Depression Total Score: 0 02/15/20 24 2:57 PM EDT documented as of this encounter Care Teams Marine Diver Relationship Specialty Start Date End Date Meenakshi Denise MD [address] [place] [address] PCP - General Family Medicine 10/31/13 documented as of this encounter
--- OUTSIDE RECORDS SUMMARY | 2024-12-11 15:06 | XMS_ITS | Encounter Summary ---
Author Organization [employer] Address [address] [place] [address] Care Team Providers Care Dress Finisher Name Role Phone Meenakshi Denise MD Primary Care Provider [phone] Encounter Details Date Type Department Care Team ([facility] st Contact Info) Description 11/22/2024 Telephone [facility] MEDICINE [address] [place] [address] Meenakshi Denise MD [address] [place], [place] [phone] Social History Tobacco Use Types Packs/Day Years [...] * Telephone Encounter - Tammi Sheth - 11/22/2024 3:38 PM EST Pharmacy [facility] attempted outreach call on 11/22/24 for CDTM - Diabetes appointment; however, unable to reach patient. LVM for patient to contact Tammi Sheth at [phone]. documented in this encounter Plan of Treatment Upcoming Encounters Date Type Department Care Team (Late st Contact Info) Description 01/14/2025 2:30 PM EDT Medication Management [facility] CHC MED & PEDS [address] [place] [address] Ngoc Schwartz, PharmD [address] [place] [address] 01/22/2025 9:00 AM EDT Office Visit [facility] ADULT DENTAL [address] [place] [address] Amy Monahan documented as of this encounter Visit Diagnoses Not on filedocumented in this encounter Additional Health Concerns Assessment Noted Time PHQ-9 Depression Total Score: 0 02/15/20 24 2:57 PM EDT documented as of this encounter Care Teams Dress Finisher Relationship Specialty Start Date End Date Meenakshi Denise MD [address] [place] [address] PCP - General Family Medicine 10/31/13 documented as of this encounter
--- OUTSIDE RECORDS SUMMARY | 2024-12-11 15:06 | XMS_ITS | Encounter Summary ---
Author Organization [employer] Address [address] 7t [place] [address] Care Team Providers Care Immigration Attorney Name Role Phone Meenaksih Denise MD Primary Care Provider [phone] Reason for Referral * Consultation (Urgent) - Authorized Specialty Diagnoses / Procedures Referred By Victoria marie Referred To Contact Pharmacy Diagnoses Type 2 diabetes mellitus without complication, without long-term current use of insulin (CMS/HCC) Meenakshi Denise MD [address] [place] [address] Phone: tel: fax: Referral ID Status Reason Start Date Expiration Date Visits Requested Visits Authorized [id number] Authorized Consult and Treat 11/22/2024 11/22/2025 6 6 Encounter Details Date Type Department Care Team ([facility] Contact Info) Description 11/22/2024 Orders Only [facility] CHC MED & PEDS [address] [place] [address] Meenakshi Denise MD [address] [place] [address] Type 2 diabetes mellitus without complication, without long-term current use of insulin (CMS/HCC) (Primary Dx) Social History Tobacco Use Types Packs/Day Years [...] AM EDT documented as of this encounter Plan of Treatment Upcoming Encounters Date Type Department Care Team (Late st Contact Info) Description 01/14/2025 2:30 PM EDT Medication Management [facility] CH[facility] MED & PEDS [address] [place] [address] Ngoc Schwartz, PharmD [address] [place] [address] 01/22/2025 9:00 AM EDT Office Visit [facility] ADULT DENTAL [address] [place] [address] Amy Monahan Scheduled Referrals Name Type Priority Associated Diagnoses Orde r Schedule Referral to Pharmacy CDTM Outpatient Referral Urgent Type 2 diabetes mellitus without complication, without long-term current use of insulin ([facility]) Ordered: 11/22/2024 documented as of this encounter Visit Diagnoses Diagnosis Type 2 diabetes mellitus without complication, without long-term current use of insulin ([facility])- Primary documented in this encounter Additional Health Concerns Assessment Noted Time PHQ-9 Depression Total Score: 0 02/15/20 24 2:57 PM EDT documented as of this encounter Care Teams Immigration Attorney Relationship Specialty Start Date End Date Meenakshi Denise MD [address] [place] [address] PCP - General Family Medicine 10/31/13 documented as of this encounter
--- OUTSIDE RECORDS SUMMARY | 2024-12-11 15:07 | XMS_ITS | Encounter Summary ---
Author Organization [employer] Address [address] [facility] [address] [facility] 7t [place] [address] Care Team Providers Care Global Implementation Manager Name Role Phone Meenakshi Denise MD Primary Care Provider [phone] Reason for Visit * Reason Onset Date Comments Nurse Triage 02/23/2024 Encounter Details Date Type Department Care Team ([facility] Contact Info) Description 02/23/2024 Telephone [facility] MED & PEDS [address] [place] [address] Meenakshi Denise MD [address] [place] [address] Nurse Triage Social History Tobacco Use Types Packs/Day Years Used Date Smoking Tobacco: Never Smokeless Tobacco: Never Depression Answer Date Recorded Patient Health Questionnaire-9 [...] Patient Health Questionnaire-2 Score 0 02/15/2024 Comments Unknown Sex and Gender Information Value Date Recorded Sex Assigned at Female 08/23/2022 10:21 AM EDT Legal Sex Female 10:21 AM EDT Gender Identity Female 08/23/2022 10:21 AM EDT Sexual Orientation Choose not to disclose 2021 10:21 AM EDT documented as of this encounter Miscellaneous Notes * Telephone Encounter - Meenakshi Denise MD - 02/23/2024 2:38 PM EDT Reduce the dose of Farxiga to half tab * Telephone Encounter - Kia Bear RN - 02/23/2024 12:01 PM EDT First dose taken last . Per pt having sx of sweating since starting this med, specifically in the mornings. Per pt waking up in the morning with a headache. Per pt does not have glucometer athome to check BS. Per pt has not taken DM meds today. Had sx this morning. Per pt Farxiga taken last night at 6pm. Per pt had already had dinner but also had a snack before bed. Per pt not currently having any sx now. Pt advised of disposition, agrees to have PCP review SE to med and if possible tosend Rx for glucometer for pt to perform BS checks especially when having sx. Pt advised to call back should sx recur even if not taking medication. Will send to PCP to review and further advise teamof plan of care re: Farxiga and Glucometer. Pt agreeable to nurse visit as well as needed. Protocol Used: Diabetes - Low Blood Sugar (Adult) Protocol-Based Disposition: Discuss with PCP and Callback by Nurse Today Video visit offer not recorded Positive Triage Question: * Caller has NON-URGENT medication or insulin pump question and triager unable to answer question * All higher-acuity triage questions were negative Care Advice Discussed: * Reassurance and Education - Low Blood Sugar * Low Blood Sugar (Hypoglycemia) - Definition * Low Blood Sugar - Treatment - Eat Some (15-20 grams) Sugar Now * Reasons To Call Back - Symptoms do not improve within 30 minutes - Sleepiness or confusion occur - You become worse * Hypoglycemia - Prevention * Reasons To Call Back - Morning blood glucose under 80 mg/dL (4.4 mmol/L) more than once in a week - You become worse * Telephone Encounter - Lluvia Alcantara - 02/23/2024 11:42 AM EDT Symptom: Medication Reaction to dapagliflozin (Farxiga) 5 MG Outcome: Schedule an urgent appointment (within 1 hour) or talk to a nurse or provider soon Reason: Caller denied all higher acuity questions The caller accepted this outcome documented in this encounter Plan of Treatment Upcoming Encounters Date Type Department Care Team (Late st Contact Info) Description 01/14/2025 2:30 PM EDT Medication Management [facility] CHC MED & PEDS [address] [place] [address] Ngoc Schwartz PharmD [address] [place] [address] 01/22/2025 9:00 AM EDT Office Visit [facility] ADULT DENTAL [address] [place] [address] Amy Monahan documented as of this encounter Visit Diagnoses Not on filedocumented in this encounter Additional Health Concerns Assessment Noted Time PHQ-9 Depression Total Score: 0 02/15/20 24 2:57 PM EDT documented as of this encounter Care Teams Global Implementation Manager Relationship Specialty Start Date End Date Meenakshi Denise MD [address] [place] [address] PCP - General Family Medicine 10/31/13 documented as of this encounter
--- OUTSIDE RECORDS SUMMARY | 2024-12-11 15:07 | XMS_ITS | Encounter Summary ---
Author Organization [employer] Address [address] [place] [address] [address] [place] [address] Care Team Providers Care Wire Rope Sales Representative Name Role Phone Meenakshi Denise MD Primary Care Provider [phone] Reason for Visit * Reason Comments Med Refill Encounter Details Date Type Department Care Team (Late Contact Info) Description 02/22/2023 Refill [facility] MEDICINE [address] [place] [address] Meenakshi Denise MD [address] [place], [place] [phone] Social History Tobacco Use Types Packs/Day Years [...] Encounters Date Type Department Care Team (Late Contact Info) Description 01/14/2025 2:30 PM EDT Medication Management [facility] CHC MED & PEDS [address] [place] [address] Ngoc Schwartz PharmD [address] [place] [address] 01/22/2025 9:00 AM EDT Office Visit [facility] ADULT DENTAL [address] [place] [address] Amy Monahan documented as of this encounter Visit Diagnoses Not on filedocumented in this encounter Care Teams Wire Rope Sales Representative Relationship Specialty Start Date End Date Meenakshi Denise MD [address] [place] [address] PCP - General Family Medicine 10/31/13 documented as of this encounter
--- OUTSIDE RECORDS SUMMARY | 2024-12-11 15:07 | XMS_ITS | Clinical Summary ---
Author Organization [employer] Address [address] [facility] 7t [place] [address] Care Team Providers Care Nursing Assoc Name Role Phone Meenakshi Denise MD Primary Care Provider [phone] Allergies Active Allergy Reactions Criticality Noted Date Comments Glipizide High 06/12/2015 Other reaction(s): Stomach Pain/ nausea/palpitation Medications cholecalciferol (Vitamin D-3) 50 MCG (1999 UT) tablet Take by mouth. 05/02/20 18 Active ibuprofen 800 MG tablet Take 1 tablet by mouth every 8 (eight) hours. 11/24/19 19 Active hydrOXYzine pamoate (Vistaril) 50 MG capsule Take 1 capsule (50 mg) by mouth if needed at bedtime (sleep) for up to 15 days. 15 capsule 04/22/20 23 Active Continuous Glucose Parliamentary Librarian (FreeStyle Neida 2 Pettibone) deviceIndicatio ns:Type 2 diabetes mellitus without complication, without long-term current use of insulin ([facility]) Scan sensor every 8 hours 1 each 03/14/20 24 Active Continuous Glucose Sensor (FreeStyle Neiad 2 Sensor) miscIndications :Type 2 diabetes mellitus without complication, without long-term current use of insulin ([facility]) Apply 1 sensor every 14 days 2 each 2 03/14/20 24 Active amLODIPine (Norvasc) 10 MG tablet TAKE ONE TABLET BY MOUTH EVERY DAY 30 tablet 11 03/30/20 24 Active glyBURIDE (Diabeta) 5 MG tablet Take 2 tablets (10 mg) by mouth with breakfast and with evening meal. 120 tablet 5 05/18/20 24 Active lisinopril 5 MG tablet Take 1 tablet (5 mg) by mouth Once per day. 30 tablet 11 05/18/20 24 025 Active metoprolol succinate XL (Toprol-XL) 200 MG 24 hr tabletIndicatio ns:Hypertension , unspecified type TAKE ONE TABLET BY MOUTH EVERY DAY 30 tablet 5 07/02/20 24 Active FREESTYLE LITE test stripIndication s:Type 2 diabetes mellitus without complication, without long-term current use of insulin ([facility]) Use to test blood sugar 2 times daily 100 each 12 07/11/20 24 025 Active Lancets misc Use to test blood sugar 2 times daily 100 each 07/11/20 24 Active Alcohol Swabs 70 % pads Use to test blood sugar 2 times daily 100 each 07/11/20 24 Active Blood Glucose Monitoring Suppl (FreeStyle [place] Lite) w/Device kitIndications: Type 2 diabetes mellitus without complication, without long-term current use of insulin ([facility]) Use to test blood sugar 2 times daily 1 kit 07/11/20 Active Blood Glucose Monitoring Suppl (Accu-Chek Imelda Plus) w/Device kit Test daily before all meals/snacks and once before bedtime. 1 kit 07/24/20 24 Active Blood Glucose Calibration (Accu-Chek Imelda) solution Glucose control solution provides an easy way to ensure accurate blood glucose testing. 1 each 07/24/20 24 Active Lancets Misc. (Accu-Chek Softclix Lancet Dev) kit Test daily before all meals/snacks and once before bedtime. 1 kit 3 07/24/20 24 Active Alcohol Sheets (Alcoh-Wipe) sheet Test daily before all meals/snacks and once before bedtime. 1 each 07/24/20 24 Active glucose blood test stripIndication s:Type 2 diabetes mellitus without complication, without long-term current use of insulin ([facility]) Check Blood sugars BID Dispense Accu check only 100 each 12 07/27/20 24 025 Active albuterol 108 (90 Base) MCG/ACT inhalerIndicati ons:Mild intermittent asthma with acute exacerbation Inhale 2 puffs every 6 (six) hours. 18 g 08/29/20 24 Active empagliflozin (Jardiance) 10 MGIndications:T ype 2 diabetes mellitus without complication, without long-term current use of insulin ([facility]) Take 1 tablet (10 mg) by mouth Once per day. 30 tablet 11 12/11/19 25 Active aspirin 81 MG chewable tablet Chew 1 tablet at bed time. 11/01/19 19 025 Discontinued(M ed list cleanup (will not trigger notification to Pharmacy)) fluticasone (Flovent) 110 MCG/ACT inhaler take 1 puff by Inhalation route 2 times every day for 2 weeks 12/23/19 17 025 Discontinued(M ed list cleanup (will not trigger notification to Pharmacy)) albuterol 108 (90 Base) MCG/ACT inhaler Inhale 2 puffs every 4 (four) hours if needed for wheezing. 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 Acute gingival inflammation 04/06/2023 Type 2 diabetes mellitus 04/06/2018 Resolved Problems Problem Noted Date Diagnosed Date Resolved Date Mild intermittent asthma wit h acute exacerbation 05/12/2023 09/05/2024 Assessment & Plan (05/12/2023 9:19 AM EDT): -Rapid COVID and FluA&B negative -Possible triggers include poor air quality, allergens, URI, other -Start prednisone 40mg daily x 5 days, reviewed med use and safety -Encouraged to return to office if symptoms do not resolve following course of prednisone for consideration of CXR -Continues with albuterol PRN -ED/urgent care precautions reviewed Encounters Date Type Department Care Team Description 12/11/2024 Travel 11/22/2024 Telephone [facility] [address] [place] [address] Meenakshi Denise MD 11/22/2024 Orders Only [facility] [address] [place] [address] Meenakshi Denise MD Type 2 diabetes mellitus without complication, without long-term current use of insulin ([facility]) (Primary Dx) 11/14/2024 Telephone [facility] [address] [place] [address] Meenakshi Denise MD 11/02/2024 Telephone [facility] [address] [place] [address] Meenakshi Denise MD from Last 3 Months Immunizations Name Administration Dates Next Due Hep A, Adult 10/28/2020,11/19/2019 Hep B, adult 06/09/2020,04/10/2020,11/19/2019 Influenza Quadrivalent Adjuvanted 08/15/2023,01/2022 Pfizer Covid-19 Vaccine 12+ 02/25/2021,0 02/25/2021,02/04/2021,2020 Pfizer Covid-19 Vaccine 12+ Bivalent 08/27/2022 Td (adult), unspecified 09/07/2002 Tdap 05/02/2018,02/03/2011 Social History Tobacco Use Types Packs/Day Years Used Date Smoking Tobacco: Never Smokeless Tobacco: Never Tobacco Cessation:Counseling Given: Not Answered Alcohol Use Standard Drinks/Week Comments Yes 0 [...] not to disclose 2021 10:21 AM EDT Last Filed Vital Signs Vital Sign Reading Time Taken Comments Blood Pressure 128/62 12/11/2024 2:44 PM EST Pulse 63 12/11/2024 2:44 PM EST Temperature 36.4 ??C (97.6 ??F) 09/05/2024 9:04 AM ES T Respiratory Rate 17 09/05/2024 9:04 AM EST Oxygen Saturation 98% 09/05/2024 9:04 AM EST Inhaled Oxygen Concentration - - Weight 64.9 kg (143 lb) 09/05/2024 9:04 AM EST Height 152.4 cm (5') 07/11/2024 9:11 AM EDT Body Mass Index 27.93 07/11/2024 9:11 AM EDT Plan of Treatment Upcoming Encounters Date Type Department Care Team (Late st Contact Info) Description 01/14/2025 2:30 PM EDT Medication Management [facility] [address] [place] [address] Ngoc Schwartz, PharmD [address] [place] [address] 01/22/2025 9:00 AM EDT Office Visit [facility] [address] [place] [address] Amy Monahan Health Maintenance Due Date Last Done Comments CT Colonography 1957 Colonoscopy 1957 Colorectal Cancer Screening 1957 FIT DNA/Cologuard 1957 FIT 1957 FOBT 1957 Sigmoidoscopy 1957 Alcohol/Substance Use Screening 1969 Hepatitis C Screening 1975 Diabetes: Urine Protein Screening 1976 Pneumococcal Vaccine: 50+ Years (1 of 2 - PCV) 1976 Zoster Vaccines (1 of 2) 2007 RSV Patients and Patients Aged 60 years or older (1 - Risk 60-74 years 1-dose series) 2017 Mammogram 03/23/2021 03/23/2019, 01/20/2018 Diabetes: Hemoglobin A1C 08/18/2024 024, 02/28/2024, 01/04/2024 Dental Prophylaxis 09/07/2024 03/06/2024, 04/06/2023 Dental Oral Exam 10/20/2024 04/19/2024, 01/18/2023 Depression Screening 02/14/2025 02/15/2024, 02/15/20 SDOH Screening 02/14/2025 02/15/2024 Dental X-Ray: Bitewings 03/07/2025 03/06/20 24, 01/18/2023, 01/03/2023 Diabetes: Foot Exam 03/14/2025 03/14/2024, 03/14/2024, 03/14/2024, Additional history exists Eye Exam 05/05/2025 05/05/2023, 04/23, 05/05/2023, Additional history exists Lipid Panel 05/18/2025 05/18/2024, 02/28/2024 Tobacco Screening 09/05/2025 09/05/2024 Dental X-Ray: Full Mouth 01/19/2026 01/18/2023 DTaP/Tdap/Td Vaccines (3 - Td or Tdap) 05/02/2028 05/02/2018, 02/03/2011, 09/07/2002, Additional history exists Hepatitis B Vaccines Completed 06/09/2020, 04/10/2020, 11/19/2019 Hepatitis A Vaccines Aged Out 10/28/2020, 11/19/19 20 No longer eligible based on patient's age to complete this topic COVID-19 Vaccine Completed 07/18/2024, , 08/27/2022, Additional history exists Influenza Vaccine Completed 07/18/2024, , 08/27/2022 HIB Vaccines Aged Out No longer eligi ble based on patient's age to complete this topic HPV Vaccines Aged Out No longer eligi ble based on patient's age to complete this topic IPV Vaccines Aged Out No longer eligi ble based on patient's age to complete this topic Meningococcal Vaccine Aged Out No zachariah gita eligible based on patient's age to complete this topic RSV under 20 months Aged Out No longe r eligible based on patient's age to complete this topic Rotavirus Vaccines Aged Out No longer eligible based on patient's age to complete this topic Procedures Procedure Name Priority Date/Time Associated Diagnosis Comments HEMOGLOBIN A1C Routine 05/18/2024 12:00 AM EDT Type 2 diabetes mellitus without complication, without long-term current use of insulin ([facility]) LIPID PANEL, STANDARD Routine 05/18/2024 12:00 AM EDT Type 2 diabetes mellitus without complication, without long-term current use of insulin ([facility]) PERIODIC ORAL EVALUATION - ESTABLISHED PATIENT Routine 04/19/2024 8:00 AM EDT PROPHYLAXIS - ADULT Routine 03/06/2024 8 :00 AM EDT Dental calculus Dental plaque BITEWINGS - 4 RADIOGRAPHIC IMAGES Routine 03/06/2024 8:00 AM EDT INTRAORAL - COMPLETE SERIES OF RADIOGRAPHIC IMAGES Routine 01/18/2023 1:00 PM EDT Periodontal abscess Gingival hyperplasia BI MAMMOGRAM SCREENING BILATERAL Routine 03/23/2019 3:47 PM EDT from Last 3 Months or Most Recently Relevant to Health Maintenance Results * (ABNORMAL) Hemoglobin A1c (05/18/2024 12:00 AM EDT) Hemoglobin A1c 9.1(H) <6.0 % [facility] Comment:Hemoglobin A1C Refer ence Range Adults: 4.8 - 6.0 % Non diabetic: < 6.0 % Goal: < 7.0 %Additional Action Suggested: > 8.0 %Note: Hemoglobin A1c results are invalid for patients with abnormal amounts of HbF. Blood transfusions may impact the HbA1c concentration in the patient sample. Estimated Average Glucose 214 mg/dL [facility] Comment:eAG = Estimated ave rage glucose which is %A1C expressed asaverage glucose, using the formula of the [id number] Glucose study (ADAG), Diabetes Care, Vol.31,#8,Aug. 2007 Blood Venous blood specimen / Unknown 05/18/2024 05/18/2024 Meenakshi Denise MD LAB BLOOD ORDERABLES Final Resul t Performing Organization Address [facility]/ZIP Co de Phone Number [facility] [address] [place] [address] [phone] * (ABNORMAL) Lipid Panel, Standard (05/18/2024 12:00 AM EDT) Triglycerides 102 <150 mg/dL [facility] Comment:Desirable Triglyceri de: less than 150 mg/dLBorderline High Triglyceride 150-199 mg/dLHigh Triglyceride: 200-499 mg/dLVery High Triglyceride: greater than or equal to 5OO mg/dL Cholesterol 170 <200 mg/dL [facility] Comment:Desirable Cholestero l: less than 200 mg/dLBorderline High Cholesterol: 200-239 mg/dLHigh Cholesterol: greater than 239 mg/dL LDL Cholesterol Calculated 101(H) <100 mg/dL [facility] Comment:Desirable LDL: less than 100 mg/dLNear Optimal/Above Optimal LDL: 110- 129 mg/dLBorderline High LDL: 130-159 mg/dLHigh LDL: 160-189 mg/dLVery High LDL: greater than or equal to 190 mg/dL HDL Cholesterol 49 >40 mg/dL [facility] Comment:Desirable HDL: great er than 40 mg/dL Note: This HDL assay may give artificially low results in patients with liver disease. Blood Venous blood specimen / Unknown 05/18/2024 05/18/2024 Meenakshi Denise MD LAB BLOOD ORDERABLES Final Resul t Performing Organization Address City/[facility]/ZIP Co de Phone Number [facility] [address] [place] [address] [phone] * DIGITAL BILATERAL SCREEN 1 (03/23/2019 3:47 PM EDT) Anatomical Region Laterality Modality Breast Bilateral Mammography 03/23/2019 3:47 PM EDT Narrative 03/23/2019 3:47 PM EDT Refer to the Notes tab for result details [facility] Procedure: DIGITAL BILATERAL SCREEN 1 Procedure Note Provider, MD Justin - 01/15/2023 Refer to the Notes tab for result details Legacy Procedure: DIGITAL BILATERAL SCREEN 1 Meenakshi Denise MD IMG BI PROCEDURES Final Result from Last 3 Months or Most Recently Relevant to Health Maintenance Insurance [employer] [place] [id number] [place] [id number] Care Teams Nursing Assoc Relationship Specialty Start Date End Date Meenakshi Denise MD [address] [place] [phone] PCP - General Family Medicine 10/31/13
--- OUTSIDE RECORDS SUMMARY | 2024-12-11 15:07 | XMS_ITS | Encounter Summary ---
Author Organization [employer] Address [address] [facility] 7t [place] [address] Care Team Providers Care Loan Collector Name Role Phone Meenakshi Denise MD Primary Care Provider [phone] Reason for Visit * Reason Onset Date Comments Med Refill 03/03/2023 Encounter Details Date Type Department Care Team (Late Contact Info) Description 03/03/2023 Telephone [facility] [address] [place] [address] Meenakshi Denise MD [address] [place] [address] Med Refill Social History Tobacco Use Types Packs/Day Years [...] encounter Miscellaneous Notes * Telephone Encounter - Kirill Aj - 03/03/2023 1:34 PM EDT Tc from pt requesting med refill amLODIPine (Norvasc) 10 MG tablet documented in this encounter Plan of Treatment Upcoming Encounters Date Type Department Care Team ([facility] Contact Info) Description 01/14/2025 2:30 PM EDT Medication Management [facility] [address] [place], [place] [phone] Ngoc Schwartz PharmD [address] [place] [address] 01/22/2025 9:00 AM EDT Office Visit [facility] [address] [place] [address] Amy Monahan documented as of this encounter Visit Diagnoses Not on filedocumented in this encounter Care Teams Loan Collector Relationship Specialty Start Date End Date Meenakshi Denise MD [address] [place] [address] PCP - General Family Medicine 10/31/13 documented as of this encounter
--- OUTSIDE RECORDS SUMMARY | 2024-12-11 15:07 | XMS_ITS | Encounter Summary ---
Author Organization [employer] Address [address] [place] [address] Care Team Providers Care Software Client Architect Name Role Phone Meenakshi Denise MD Primary Care Provider [phone] Encounter Details Date Type Department Care Team (Latest Contact Info) Description 12/11/2024 Travel Social History Tobacco Use Types Packs/Day Years [...] 2:30 PM EDT Medication Management [facility] [address] [place] [address] Ngoc Schwartz PharmD [address] [place] [address] 01/22/2025 9:00 AM EDT Office Visit [facility] [address] [place] [address] Amy Monahan documented as of this encounter Visit Diagnoses Not on filedocumented in this encounter Additional Health Concerns Assessment Noted Time PHQ-9 Depression Total Score: 0 02/15/20 24 2:57 PM EDT documented as of this encounter Care Teams Software Client Architect Relationship Specialty Start Date End Date Meenakshi Denise MD [address] [place] [address] PCP - General Family Medicine 10/31/13 documented as of this encounter
--- OUTSIDE RECORDS SUMMARY | 2024-12-11 15:07 | XMS_ITS | Encounter Summary ---
Author Organization [employer] Address [address] [facility] [address] [place] [address] Care Team Providers Care Neon Pumper Name Role Phone Meenakshi Denise MD Primary Care Provider [phone] Encounter Details Date Type Department Care Team (Late Contact Info) Description 05/04/2023 Abstract [facility] [address] [place] [address] Maris Gaines [address] [place] [address] Social History Tobacco Use Types Packs/Day Years Used Date Smoking Tobacco: Never Smokeless Tobacco: Never Comments Unknown Sex and Gender Information Value Date Recorded Sex Assigned at Female 08/23/2022 10:21 AM EDT Legal Sex Female 10:21 AM EDT Gender Identity Female 08/23/2022 10:21 AM EDT Sexual Orientation Choose not to disclose 2021 10:21 AM EDT COVID-19 Exposure Response Date Recorded In the last 10 days, have yo u been in contact with someone who was confirmed or suspected to have Coronavirus/COVID-19? No / Unsure 04/22/2023 9:09 AM EDT documented as of this encounter Plan of Treatment Upcoming Encounters Date Type Department Care Team (Late Contact Info) Description 01/14/2025 2:30 PM EDT Medication Management [facility] [address] [place] [address] Ngoc Schwartz, PharmD [address] [place] [address] 01/22/2025 9:00 AM EDT Office Visit [facility] [address] [place] [address] Amy Monahan documented as of this encounter Visit Diagnoses Not on filedocumented in this encounter Care Teams Neon Pumper Relationship Specialty Start Date End Date Meenakshi Denise MD [address] [place] [address] PCP - General Family Medicine 10/31/13 documented as of this encounter
--- OUTSIDE RECORDS SUMMARY | 2024-12-11 15:07 | XMS_ITS | Encounter Summary ---
Author Organization [employer] Address [address] [place] [address] [address] [place] [address] Care Team Providers Care Relay Motorman Name Role Phone Meenakshi Denise MD Primary Care Provider [phone] Reason for Visit * Reason Comments Med Refill Encounter Details Date Type Department Care Team (Late Contact Info) Description 03/03/2023 Refill [facility] [address] [place] [address] Meenakshi Denise MD [address] [place], [place] [phone] Social History Tobacco Use Types Packs/Day Years [...] Description 01/14/2025 2:30 PM EDT Medication Management [facility] [address] [place] [address] Ngoc Schwartz PharmD [address] [place] [address] 01/22/2025 9:00 AM EDT Office Visit [facility] [address] [place] [address] Amy Monahan documented as of this encounter Visit Diagnoses Not on filedocumented in this encounter Care Teams Relay Motorman Relationship Specialty Start Date End Date Meenakshi Denise MD [address] [place] [address] PCP - General Family Medicine 10/31/13 documented as of this encounter
--- OUTSIDE RECORDS SUMMARY | 2024-12-11 15:07 | XMS_ITS | Encounter Summary ---
Author Organization [employer] Address [address] [facility] [address] [place] [address] Care Team Providers Care Lumber Sorter Name Role Phone Meenakshi Denise MD Primary Care Provider [phone] Encounter Details Date Type Department Care Team ([facility] Contact Info) Description 01/03/2023 Telephone [facility] [address] [place], [place] [phone] Meenakshi Denise MD [address] [place], [place] [phone] Social History Tobacco Use Types Packs/Day Years [...] suspected to have Coronavirus/COVID-19? No / Unsure 01/03/2023 1:47 PM EDT documented as of this encounter Plan of Treatment Upcoming Encounters Date Type Department Care Team (Late Contact Info) Description 01/14/2025 2:30 PM EDT Medication Management [facility] [address] [place] [address] Ngoc Schwartz, PharmD [address] [place] [address] 01/22/2025 9:00 AM EDT Office Visit [facility] [address] [place] [address] Amy Monahan documented as of this encounter Visit Diagnoses Not on filedocumented in this encounter Care Teams Lumber Sorter Relationship Specialty Start Date End Date Meenakshi Denise MD [address] [place] [address] PCP - General Family Medicine 10/31/13 documented as of this encounter
[2025-01-23 12:59] VITALS: BMI 27.1
--- NOTE | 2025-01-24 10:13 | HO.ANESPROP2 ---
Documented by User: Marion Sepulveda NP 02/13/25 14:06 HPI - Anesthesia Eval Consult details Narrative: 69yo F for Upper Endoscopy and Colonoscopy, 03/15/25 ETOH cirrhosis, compensated at last office visit 07/2024, but continues to drink Anesthesia Pre-Procedure Meds Is the patient on any of the following meds?: GLP1/DPP4 and SGLT2 Inhib PMFSH Active Problems Active Problems: All Active Problems Liver cyst (Acute) Cirrhosis of liver without ascites (Acute) Portal hypertension (Acute) Thrombocytopenia (Acute) History of ETOH abuse (Acute) Vitamin D deficiency (Acute) Elevated LFTs (Acute) Type 2 diabetes mellitus (Acute) Abnormal US (ultrasound) of abdomen (Acute) Past Medical History Medical History Vitamin D deficiency Portal hypertension Cirrhosis of liver without ascites ETOH abuse Thrombocytopenia Type 2 diabetes mellitus History of gastric cancer Family History Family History Father No problems noted. Mother No problems noted. Family history of problems with anesthesia: No Surgical History Surgical History History of esophagogastroduodenoscopy (EGD) Hx of tubal ligation Hx of abdominal surgery History of appendectomy Hx of endoscopy History of colonoscopy History of hysterectomy History of History of Problems with Anesthesia: No Social History Social History Are you a primary manager intensive care to a significant other at home: No Do you presently have visiting nurse or other home services: No Alcohol intake: current Alcohol intake frequency: former alcohol drinker Alcohol type: beer Patient Tobacco Use Status: Never used Tobacco Have you been hit, kicked, punched, or otherwise hurt by someone within the past year? If so, by whom?: No Are you DNR?: No Advance Directives: No Advance Directives Information Provided: Yes Poor oral hygiene: No Meds Allergies Allergy/AdvReac Type Severity Reaction Status Date / Time glipizide Allergy Unknown Stomach Verified 03/15/25 08:33 pain, nausea, palpitations Home Medications ?Medication ?Instructions ?Recorded ?Confirmed ?Last Taken ?Type amlodipine 10 mg tablet 10 mg PO DAILY 12/17/20 04/02/25 05/23/25 History glyburide 5 mg tablet 5 mg PO BID 10/09/20 01/23/25 06/18/22 07:30 History metoprolol succinate 200 mg 200 mg PO DAILY 10/09/20 01/23/25 03/15/25 History tablet,extended release 24 hr lisinopril 5 mg tablet 5 mg PO DAILY 08/09/24 01/23/25 Unknown History empagliflozin 10 mg tablet 10 mg PO DAILY 01/24/25 03/15/25 03/12/25 History (Jardiance) Exam Height,Weight and Vital Signs: Height 5 ft Weight 63.049 kg Narrative Narrative: MR abdomen wo/w con 11/2024 IMPRESSION: Hepatocellular disease/cirrhosis with heterogeneous portal venous phase enhancing parenchyma and no arterial phase enhancing lesion to suggest hepatocellular carcinoma. Continued surveillance. Assessment and Plan Assessment Anesthesia Assessment: Chart Reviewed Final Anesthetic Review Family History of Problems with Anesthesia: No History of Problems with Anesthesia: No Documented by User: Ferderick Lazaro MD 03/15/25 10:59 [facility] Past Medical History Medical History Vitamin D deficiency Portal hypertension Cirrhosis of liver without ascites ETOH abuse Thrombocytopenia Type 2 diabetes mellitus History of gastric cancer Functional capacity: independent ambulation Patient : No Family History Family History Father No problems noted. Mother No problems noted. Surgical History Surgical History History of esophagogastroduodenoscopy (EGD) Hx of tubal ligation Hx of abdominal surgery History of appendectomy Hx of endoscopy History of colonoscopy History of hysterectomy History of History of Problems with Anesthesia: No Social History Social History Are you a primary manager intensive care to a significant other at home: No Do you presently have visiting nurse or other home services: No Alcohol intake: current Alcohol intake frequency: former alcohol drinker Alcohol type: beer Patient Tobacco Use Status: Never used Tobacco Have you been hit, kicked, punched, or otherwise hurt by someone within the past year? If so, by whom?: No Are you DNR?: No Advance Directives: No Advance Directives Information Provided: Yes Poor oral hygiene: No Meds Allergies Allergy/AdvReac Type Severity Reaction Status Date / Time glipizide Allergy Unknown Stomach Verified 03/15/25 08:33 pain, nausea, palpitations Home Medications ?Medication ?Instructions ?Recorded ?Confirmed ?Last Taken ?Type amlodipine 10 mg tablet 10 mg PO DAILY 10/09/20 01/23/25 03/15/25 History glyburide 5 mg tablet 5 mg PO BID 10/09/20 01/23/25 06/18/22 07:30 History metoprolol succinate 200 mg 200 mg PO DAILY 10/09/20 01/23/25 03/15/25 History tablet,extended release 24 hr lisinopril 5 mg tablet 5 mg PO DAILY 08/09/24 01/23/25 Unknown History empagliflozin 10 mg tablet 10 mg PO DAILY 01/24/25 03/15/25 03/12/25 History (Jardiance) Exam Airway Mallampati Class: II TM Dist: >3cm Neck ROM: Full Heart: rrr Lungs: cts Assessment and Plan Final Anesthetic Review History of Problems with Anesthesia: No ASA Class: III Final Preanesthetic Review: No Changes in Pt Med Stat, Meds/Allgs Chart Reviewed, Consent Obtained/Reviewed and Anes Risks/Benef Reviewed Patient Risk: Intermediate Procedure Risk: Low Anesthetic Plan Anesthetic Plan: GA and Agree w/ Assess. and Plan Disposition: Standard PACU
[2025-03-15 08:23] VITALS: BMI 26.9
[2025-03-15 08:41] LABS: Hematocrit 40.8 % (37.0-47.0); Hemoglobin 13.8 g/dl (12.0-16.0); Mean Corpuscular HGB Conc 33.8 g/dl (31.0-35.0); Mean Corpuscular Hemoglobin 30.3 pg (27.0-33.0); Mean Corpuscular Volume 89.7 fL (80.0-98.0); Mean Platelet Volume 11.4 fL (9.4-12.3); Platelet Count 99 X10*3/uL (160-400); Red Blood Count 4.55 X10*6/uL (4.20-5.50); Red Cell Distribution Width 13.6 % (11.0-16.0); White Blood Count 4.7 X10*3/uL (4.8-10.8)
[2025-03-15] MEDS: Lactated Ringers 1,000 ML 100 ML IVCONT (08:42)
[2025-03-15 08:43] LABS: INTERNATIONAL NORM RATIO 1.1 (0.9-1.1); Prothrombin Time 12.4 SEC (10.9-12.4)
--- NOTE | 2025-03-15 08:48 | MHC.SHP ---
Pre-Procedural Eval Section A - 24 Hr Update-Section A only Date of Service: 03/15/25 The patient is an INPATIENT: No The patient has been examined within 24 hours of the surgical procedure. The History & Physical has been completed within 30 days and I have reviewed it.: No Section B - Complete if H&P > 30 days Chief Complaint: screening, FU of varices Details of Present Illness: cirrhosis screen for varices Relevant Family History (Specify if Yes): No Relevant Social History: None Present Medications: see Short Stay Collaborative assessment Medical History: Significant History ( cirrhosis, history of gastric cancer) History of Previous Operations: Relevant previous surgery/procedure and date(s) (History of appendectomy History of History of colonoscopy History of hysterectomy Hx of endoscopy) Allergies: Allergies Allergy/AdvReac Type Severity Reaction Status Date / Time glipizide Allergy Unknown Stomach Verified 03/15/25 08:33 pain, nausea, palpitations Review of Systems Sugical H&P ROS: Negative: Constitution, Cardiovascular, Respiratory and Gastrointestinal Exam Surgical H&P Exam: Normal: Heart, Normal: Lungs, Normal: Extremities and Normal: Abdomen Plan Diagnosis/Plan: Unchanged I have reviewed the history and physical and performed a pertinent physical examination on my patient. No changes have occurred unless specified. Time Spent With Patient Time: Total time managing care of this patient today ____ minutes.
[2025-03-15 08:50] LABS: Anion Gap 13 (12-20); Blood Urea Nitrogen 7 mg/dL (9-16); Calcium 9.5 mg/dL (8.4-10.2); Carbon Dioxide 24 mmol/L (22-29); Chloride 107 mmol/L (96-108); Creatinine Clr Calc Pharmacy 62.5; Estimated Glomerular Filt Rate > 60; Glucose Fasting 173 mg/dL (60-99); Potassium 3.6 mmol/L (3.3-5.1); Sodium 140 mmol/L (135-145)
[2025-03-15 09:00] VITALS: BP 118/76; PULSE 69; RESP 18; TEMP 36.7; O2SAT 98
[2025-03-15 09:01] LABS: Glucose, Whole Blood 171 mg/dL (60-115)
--- NOTE | 2025-03-15 11:16 | P.OPN-COLO_ITS ---
Colonoscopy Operative Note Operative Note Date of Service: 03/15/25 Narrative: FLEXIBLE TRANSORAL UPPER GASTROINTESTINAL ENDOSCOPY AND COLONOSCOPY TILL CECUM WITH WITH BIOPSIES, SNARE POLYPECTOMY, SUBMUCOSAL INJECTION AND HEMOCLIP PLACEMENT. Pre-op diagnosis: Colon cancer screening, follow-up of esophageal varices Post-op diagnosis: Small esophageal varices, portal hypertensive gastropathy Colon Polyps, Diverticulosis, hemorrhoids Endoscopist:? Cary Weaver MD Anesthesia:?MAC UPPER ENDOSCOPY Consent: Indications for the procedure and potential complications of bleeding, perforation, reaction to medications and missed diagnosis were discussed with the patient and informed consent was obtained. Instrument: Olympus GIF H 190 mid size upper endoscope Monitoring: Vital signs and clinical assessment, continuous EKG monitoring, Pulse oximetry, Carbon Dioxide monitoring and blood pressure monitoring were done throughout the procedure. Procedure: The patient was placed in the left lateral decubitis position and pre-procedure medications were administered and a bite block was placed. The endoscope was inserted into the mouth and advanced under direct vision to the third part of duodenum. A careful inspection was made as the upper endoscope was withdrawn including a retroflexed examination of the proximal stomach; Findings and interventions are described below. Findings: Larynx: Normal Esophagus: Grade 1-2 two columns of esophageal varices from 30 to 38 cms? without high risk stigmata for bleeding and not amenable to band ligation. GE junction at 38 cms. No esophagitis or Soria's. Stomach: Moderate portal gastropathy. Grade 2 flap valve? and no significant gastric varices on retroflexed examination of the cardia. Duodenum: Normal bulb and descending duodenum Intervention: None COLONOSCOPY PROCEDURE NOTE Instrument: Olympus PCF HQ 190 L variable stiffness pediatric colonoscope Monitoring: Vital signs and clinical assessment, intermittent blood pressure monitoring, continuous EKG monitoring, Pulse oximetry and Carbon Dioxide monitoring were done throughout the procedure. Please see anesthesia flowsheet. Colon withdrawl time was 35 minutes. Procedure: The patient was placed in the left lateral decubitis position and pre-procedure medications were administered. After a digital rectal examination of the ano-rectum, the video colonoscope was inserted into the rectum and advanced through the colon to the cecum. The colonoscope was slowly withdrawn in a retrograde panoramic fashion and the colon mucosa was carefully examined including a retroflexed view of the rectum. Findings and interventions are described below. Procedure Difficulty: [without difficulty] [LLQ pressure was applied to intubate the cecum/ascending colon] Findings: Terminal Ileum: Not evaluated Cecum: Three 4-10 mm sessile polyps - removed with a hot snare Ascending Colon: Two 3-4 mm sessile polyps - removed with a cold biopsy. Transverse Colon: A 10 mm sessile polyp - removed with a hot snare. Descending Colon: Moderate diverticulosis Sigmoid Colon: Two 8-12 mm sessile polyps - removed with a hot snare. Moderate diverticulosis Rectum: A 2.5 cms flat polyp on retroflexed exam (1 cms above the anal verge). Polyp was raised with 4 cc of [place] and removed piecemeal with a hot snare. Polypectomy site was closed with 1 hemoclip. Ano-rectum: Small internal hemorrhoids Colon preparation: Good after some irrigation. [place] Bowel Preparation Scale Right colon; 2 Transverse colon: 2 Left colon; 2 (0 = Unprepared colon segment with mucosa not seen due to solid stool that cannot be cleared. 1 = Portion of mucosa of the colon segment seen, but other areas of the colon segment not well seen due to staining, residual stool and/or opaque liquid. 2 = Minor amount of residual staining, small fragments of stool and/or opaque liquid, but mucosa of colon segment seen well. 3 = Entire mucosa of colon segment seen well with no residual staining, small fragments of stool or opaque liquid) Impression and Post Procedure Diagnosis: Endoscopy Findings: ESOPHAGUS: [] STOMACH: [] DUODENUM: [] Colonoscopy Findings: Nine small to medium sized polyps were removed Moderate diverticulosis seen in the left colon small hemorrhoids on retroflexed exam. Plan: Pt will be scheduled for a FU appt with with Dr Weaver Repeat Colonoscopy in 6 months due to multiple colon polyps and to check polypectomy site in the rectum. A summary of above findings and relevant handouts were given to the patient. BIOPSIES SHOWED: A. Colon, cecum, polypectomy x3: Tubular adenoma (3), multiple fragments; negative for high-grade dysplasia. B. Colon, ascending, polypectomy x2: Colonic mucosa with a prominent lymphoid aggregate; negative for a hyperplastic or neoplastic process. C. Colon, transverse, polypectomy: Polypoid colonic mucosa noted; negative for a hyperplastic or neoplastic process. D. Colon, sigmoid, polypectomy x2: Tubular adenoma (2), multiple fragments; negative for high-grade dysplasia. E. Rectum, polypectomy: Tubular adenoma with multifocal high-grade dysplasia; cauterized margin appears to be uninvolved
[2025-03-15 12:15] VITALS: BP 125/56; PULSE 78; RESP 20; TEMP 36.1; O2SAT 100
[2025-03-15 12:30] VITALS: BP 125/56; PULSE 63; RESP 16; O2SAT 99
[2025-03-15 12:44] VITALS: BP 140/70; PULSE 61; RESP 16; TEMP 36.2; O2SAT 98
== END 2025-03-15 13:07 | disposition home or self-care (01) ==
PROVIDERS: Nurse Practitioner; PCP Student in an Organized Health Care Education/Training Program; Visit Provider Internal Medicine Gastroenterology
PROC: (CPT 45385; principal; 2025-03-15 09:20)
DX: Z12.11 Encounter for screening for malignant neoplasm of colon (principal); D12.0 Benign neoplasm of cecum; D12.5 Benign neoplasm of sigmoid colon; D12.8 Benign neoplasm of rectum; K57.30 Diverticulosis of large intestine without perforation or abscess without bleeding; K64.8 Other hemorrhoids; K70.30 Alcoholic cirrhosis of liver without ascites; I85.10 Secondary esophageal varices without bleeding; K76.6 Portal hypertension; F10.11 Alcohol abuse, in remission; E11.9 Type 2 diabetes mellitus without complications; E55.9 Vitamin D deficiency, unspecified
CPT/HCPCS: 45385; 45380; 45381; 43235; 36415; 80048; 82947; 85027; 85610; 88305; J2003; J2704; J3010

== ENCOUNTER 2025-04-19 09:29 | Outpatient (REF) | payer MEDICARE, SELFPAY ==
--- OUTSIDE RECORDS SUMMARY | 2025-04-19 09:53 | XMS_ITS | Encounter Summary ---
Author Organization [employer] Address [address] [place] [address] Care Team Providers Care Railcar Switchman Name Role Phone Meenakshi Denise MD Primary Care Provider [phone] Ngoc Schwartz PharmD Unavailable [phone] Encounter Details Date Type Department Care Team ([facility] Contact Info) Description 07/25/2024 Telephone [facility] [address] [place], [place] [phone] Meenakshi Denise MD [address] [place], [place] Social History Tobacco Use Types Packs/Day [...] 2:36 PM EDT Tc from aide at [facility] regarding glucose monitor (Blood Glucose Monitoring Suppl (Accu-Chek Imelda Plus) w/Device kit). Aide stated that monitor is unavailable. Contact Aide at [phone] documented in this encounter Plan of Treatment Upcoming Encounters Date Type Department Care Team (Late st Contact Info) Description 04/23/2025 2:30 PM EDT Office Visit [facility] OPTOMETRY [address] [place] [address] Tim, Rachel, OD [address] [place] [address] 05/06/2025 2:30 PM EDT Medication Management [facility] [address] [place] [address] Ngoc Schwartz PharmD [address] [place] [address] documented as of this encounter Visit Diagnoses Not on filedocumented in this encounter Additional Health Concerns Assessment Noted Time PHQ-9 Depression Total Score: 0 02/15/20 2:57 PM EDT documented as of this encounter Care Teams Railcar Switchman Relationship Specialty Start Date End Date Meenakshi Denise MD [address] [place] [address] PCP - General Family Medicine 10/31/13 Ngoc Schwartz, Stephie [address] [place] [address] Pharmacist Internal Medicine 12/11/24 documented as of this encounter
[2025-04-19 14:30] LABS: Estimated Average Glucose 157 mg/dL; Hemoglobin A1c % 7.1 % (<6.0)
[2025-04-19 14:31] LABS: Alanine Aminotransferase 24 U/L (0-31); Albumin Level 4.1 g/dL (3.5-5.0); Alkaline Phosphatase 81 U/L (39-117); Anion Gap 14 (12-20); Aspartate Amino Transferase 37 U/L (5-31); Bilirubin Direct 0.3 mg/dL (0.0-0.5); Bilirubin Total 0.7 mg/dL (0.0-1.0); Blood Urea Nitrogen 10 mg/dL (9-16); Calcium 9.2 mg/dL (8.4-10.2); Carbon Dioxide 24 mmol/L (22-29); Chloride 106 mmol/L (96-108); Cholesterol 208 mg/dL (<200); Estimated Glomerular Filt Rate > 60; Glucose Random 160 mg/dL (60-115); HDL Cholesterol 63 mg/dL (>40); LDL Cholesterol Calculated 123 mg/dL (<100); Potassium 3.9 mmol/L (3.3-5.1); Sodium 140 mmol/L (135-145); Total Protein 7.7 g/dL (6.5-8.0); Triglycerides 114 mg/dL (<150)
== END 2025-04-19 09:30 | disposition home or self-care (01) ==
LOC: HO.CHCLDS 09:29
PROVIDERS: Visit Provider Student in an Organized Health Care Education/Training Program
DX: E11.9 Type 2 diabetes mellitus without complications (principal); I10 Essential (primary) hypertension
CPT/HCPCS: 36415; 80048; 80061; 80076; 83036